=== PATIENT | female | born 1955 | race Caucasian/White ===

== ENCOUNTER 2017-04-05 16:42 | Inpatient (IN) | payer OTHER ==
[~2017-04-05] VITALS: Ht 160 cm; Wt 70.2 kg
[~2017-04-05 16:42] MED LIST: LORA10TA7
[2017-04-05 16:44] VITALS: BP 166/83; PULSE 80; RESP 18; TEMP 99.2; O2SAT 94
--- NOTE | 2017-04-05 16:51 | PD ---
Physical Exam Time Seen by Provider: 16:47 Narrative 62yo F c/o really bad COLLAZO for 1-2 weeks. Different sensation of feeling in L had compared to R. Left lower back and leg numbness and weakness. + hallucinations such as flashers, lights and viusals. + slurred speech for one day. Patient seen in triage. VS reviewed. Awaiting bed placement. Data Data Last Documented VS Vital Signs Date Time Temp Pulse Resp B/P Pulse Ox O2 Delivery O2 Flow Rate FiO2 04/05/17 16:44 99.2 80 18 166/83 94 Room Air MDM Supervised Visit with EVELINE: Kaylyn Laureano Apr 05, 2017 16:51
--- NOTE | 2017-04-05 17:40 | PD ---
HPI Chief Complaint: Headache Time Seen by Provider: 17:39 Travel History International Travel<30 days: No Contact w/Intl Traveler<30days: No Traveled to known affect area: No History of Present Illness HPI 62-year-old female came to the emergency room brought by her with history of headache, neck pain, left sided upper extremity tingling and numbness and left lower extremity pain. Patient started having headache and earache 10 days ago and went to the urgent care. She was started on doxycycline and Medrol Dosepak. She has history of lupus. Patient says that she continues taking the medication but symptoms did not improve. She went back to urgent care about 3 days ago at this time was started on ciprofloxacin as well as prednisone. She is was getting visual hallucinations last week and the numbness started 2 days ago. She says she has been unable to feel the temperature especially the cold temperature with her left hand. She also feels numb over her left side of the lower back and left leg. There is radiating pain down her leg. Her headache continues. She has been getting fever and chills but she did not measure temperature. She has neck pain mostly on the right side of her neck. Given all these various symptoms she decided come to the emergency room. No history of sick contacts. Vital signs in triage were within acceptable limits. Patient has a malar rash which she says she has had it since she was 11 years old and comes and goes. It's related to her lupus. Currently it is very prominent. PFSH Past Medical History Narrative Medical List of her past medical, surgical, social and family history as reviewed from the nursing note. Hypertension: Yes Immune Disorder: Yes (LUPUS) Family History Family Hypercholesterolemia: Yes Social History Alcohol Use: No Tobacco Use: No Allergies-Medications (Allergen,Severity, Reaction): Coded Allergies: No Known Allergies (Verified , 08/20/06) Comments No known drug allergies. Reported Meds & Prescriptions Reported Meds & Active Scripts Active Reported Ultram (Tramadol HCl) 50 Mg Tab 50 Mg PO Q6H PRN Prednisone 50 Mg Tab 50 Mg PO DAILY Cipro Liq (Ciprofloxacin) 500 Mg/5 Ml Susp 500 Mg PO BID Narrative Medication List of home medications reviewed from the nursing note. Review of Systems Except as stated in HPI: all other systems reviewed are Neg Physical Exam Narrative GENERAL: Awake, alert, moderate distress SKIN: Focused skin assessment warm/dry. Mallor rash HEAD: Atraumatic. Normocephalic. EYES: Pupils equal and round. No scleral icterus. No injection or drainage. ENT: No nasal bleeding or discharge. Mucous membranes pink and moist. NECK: Trachea midline. No JVD. Pain on extension and flexion of her neck CARDIOVASCULAR: Regular rate and rhythm. No murmur appreciated. RESPIRATORY: No accessory muscle use. Clear to auscultation. Breath sounds equal bilaterally. GASTROINTESTINAL: Abdomen soft, non-tender, nondistended. Hepatic and splenic margins not palpable. MUSCULOSKELETAL: No obvious deformities. No clubbing. No cyanosis. No edema. NEUROLOGICAL: Awake and alert. No obvious cranial nerve deficits. Motor grossly within normal limits. Normal speech. PSYCHIATRIC: Appropriate mood and affect; insight and judgment normal. Data Data Last Documented VS Vital Signs Date Time Temp Pulse Resp B/P Pulse Ox O2 Delivery O2 Flow Rate FiO2 04/05/17 19:25 71 18 157/83 97 Room Air 04/05/17 18:02 98.2 Orders Complete Blood Count With Diff (04/05/17 17:57) Comprehensive Metabolic Panel (04/05/17 17:57) Lactic Acid Sepsis Protocol (04/05/17 17:57) Urinalysis - C+S If Indicated (04/05/17 17:57) Blood Culture (04/05/17 17:57) Chest, Single Ap (04/05/17 17:57) Blood Glucose (04/05/17 17:57) Ecg Monitoring (04/05/17 17:57) Iv Access Insert/Monitor (04/05/17 17:57) Oximetry (04/05/17 17:57) Oxygen Administration (04/05/17 17:57) Ct Brain W/O Iv Contrast(Rout) (04/05/17 17:57) Ct Cerv Spine W/O Contrast (04/05/17 ) Westergren Sedimentation Rate (04/05/17 17:57) Ceftriaxone Inj (Rocephin Inj) (04/05/17 18:00) Prothrombin Time / Inr (Pt) (04/05/17 18:04) Csf Culture And Gram Stain (04/05/17 19:02) Glucose, Csf (04/05/17 19:02) Total Protein, Csf (04/05/17 19:02) Admit Order (Ed Use Only) (04/05/17 19:42) Labs Laboratory Tests Test 04/05/17 04/05/17 04/05/17 04/05/17 17:50 18:05 18:42 18:50 White Blood Count 9.6 TH/MM3 Red Blood Count 4.29 MIL/MM3 Hemoglobin 14.8 GM/DL Hematocrit 43.4 % Mean Corpuscular Volume 101.0 FL Mean Corpuscular Hemoglobin 34.5 PG Mean Corpuscular Hemoglobin 34.1 % Concent Red Cell Distribution Width 14.3 % Platelet Count 238 TH/MM3 Mean Platelet Volume 7.3 FL Neutrophils (%) (Auto) 86.6 % Lymphocytes (%) (Auto) 8.5 % Monocytes (%) (Auto) 4.6 % Eosinophils (%) (Auto) 0.1 % Basophils (%) (Auto) 0.2 % Neutrophils # (Auto) 8.3 TH/MM3 Lymphocytes # (Auto) 0.8 TH/MM3 Monocytes # (Auto) 0.4 TH/MM3 Eosinophils # (Auto) 0.0 TH/MM3 Basophils # (Auto) 0.0 TH/MM3 CBC Comment DIFF FINAL Differential Comment Sodium Level 136 MEQ/L Potassium Level 4.2 MEQ/L Chloride Level 101 MEQ/L Carbon Dioxide Level 28.8 MEQ/L Anion Gap 6 MEQ/L Blood Urea Nitrogen 24 MG/DL Creatinine 1.71 MG/DL Estimat Glomerular Filtration 30 ML/MIN Rate Random Glucose 126 MG/DL Lactic Acid Level 1.1 mmol/L Calcium Level 8.6 MG/DL Total Bilirubin 0.3 MG/DL Aspartate Amino Transf 14 U/L (AST/SGOT) Alanine Aminotransferase 23 U/L (ALT/SGPT) Alkaline Phosphatase 101 U/L Total Protein 7.3 GM/DL Albumin 3.6 GM/DL Erythrocyte Sedimentation Rate 10 mm/hr Prothrombin Time 11.0 SEC Prothromb Time International 1.0 RATIO Ratio Urine Color LIGHT-YELLOW Urine Turbidity CLEAR Urine pH 5.5 Urine Specific [place] 1.010 Urine Protein NEG mg/dL Urine Glucose (UA) NEG mg/dL Urine Ketones NEG mg/dL Urine Occult Blood TRACE Urine Nitrite NEG Urine Bilirubin NEG Urine Urobilinogen LESS THAN 2.0 MG/DL Urine Leukocyte Esterase NEG Urine RBC LESS THAN 1 /hpf Urine WBC LESS THAN 1 /hpf Urine Squamous Epithelial <1 /hpf Cells Microscopic Urinalysis Comment CATH-CULT NOT IND MDM Medical Decision Making Medical Screen Exam Complete: Yes Emergency Medical Condition: Yes Medical Record Reviewed: Yes Differential Diagnosis Meningitis, encephalitis, cervical stenosis, viral infection, lupus flareup Narrative Course 6:50 PM chest x-ray was within normal limit. Awaiting for the CT scan of her head and C-spine report. Awaiting for blood test results to come back. CBC is back and her total white blood cell count result is within normal limit but there is some left shift. My suspicion is high for meningitis. I've given her a meningitic dose of Rocephin. Patient would require spinal tap if CT scan is within normal limits. 7:07 PM spinal tap by interventional radiology has been ordered. Case has been signed over to the oncoming ER physician. Patient will need to be admitted. CT C-spine shows considerable degenerative changes and moderate spinal stenosis. Procedures EKG Prior to Arrival: No Jacqueline Brewer MD Apr 05, 2017 17:40 Jacqueline Brewer MD Apr 05, 2017 17:40
[2017-04-05] MEDS ORDERED: cefTRIAXone INJ 2,000 MG in SODIUM CHLORIDE 0.9% INJ 100 ML IV ONE (18:00)
[2017-04-05 18:02] VITALS: BP 173/89; PULSE 69; RESP 18; TEMP 98.2; O2SAT 98
[2017-04-05] MEDS ORDERED: CIPR500S2 PO (18:02)
[2017-04-05] MEDS ORDERED: ULTR50TA5 PO (18:02)
[2017-04-05] MEDS ORDERED: PRED50 PO (18:02)
[2017-04-05 18:04] VITALS: RESP 18; O2SAT 99
--- NOTE | 2017-04-05 18:25 | RADRPT ---
EXAM DATE/TIME: 04/05/2017 17:56 [facility] COMPARISON: No previous studies available for comparison. INDICATIONS : Syncope. Headaches for the past two weeks. Dizziness also. MEDICAL HISTORY : Hypertension. Lupus. SURGICAL HISTORY : None. ENCOUNTER: Initial ACUITY: 2 weeks PAIN SCORE: 0/10 LOCATION: Bilateral chest FINDINGS: A single view of the chest demonstrates the lungs to be symmetrically aerated without evidence of mas s, infiltrate or effusion. The cardiomediastinal contours are unremarkable. Osseous structures are intact. CONCLUSION: No evidence of acute cardiopulmonary disease. Frederic Burgos MD on April 05, 2017 at 18:23 Board Certified Radiologist. This report was verified electronically.
[2017-04-05 18:41] LABS: AUTOMATED NEUTROPHIL # 8.3 TH/MM3 (1.8-7.7); BASOPHIL % 0.2 % (0.0-2.0); EOSINOPHIL % 0.1 % (0.0-4.0); HEMATOCRIT 43.4 % (35.0-46.0); HEMO FLAGS DIFF FINAL; LYMPH % 8.5 % (9.0-44.0); LYMPHOCYTE # 0.8 TH/MM3 (1.0-4.8); MEAN CORPUSCULAR HEMOGLOBIN 34.5 PG (27.0-34.0); MEAN CORPUSCULAR HGB CONC 34.1 % (32.0-36.0); MONO % 4.6 % (0.0-8.0); NEUT % 86.6 % (16.0-70.0); PLATELET COUNT 238 TH/MM3 (150-450); RED BLOOD COUNT 4.29 MIL/MM3 (4.00-5.30); RED CELL DISTRIBUTION WIDTH 14.3 % (11.6-17.2); WHITE BLOOD COUNT 9.6 TH/MM3 (4.0-11.0)
--- NOTE | 2017-04-05 18:47 | RADRPT ---
EXAM DATE/TIME: 04/05/2017 18:08 [facility] COMPARISON: No previous studies available for comparison. INDICATIONS : Cephalgia. RADIATION DOSE: 56.35 CTDIvol (mGy) MEDICAL HISTORY : Hypertension. Lupus. SURGICAL HISTORY : None. ENCOUNTER: Initial ACUITY: 2 weeks PAIN SCALE: 10/10 LOCATION: cranial TECHNIQUE: Multiple contiguous axial images were obtained of the head. Using automated exposure control and adj ustment of the mA and/or kV according to patient size, radiation dose was kept as low as reasonably a chievable to obtain optimal diagnostic quality images. DICOM format image data is available electro nically for review and comparison. FINDINGS: CEREBRUM: The ventricles are normal for age. No evidence of midline shift, mass lesion, hemorrhage or acute in farction. No extra-axial fluid collections are seen. POSTERIOR FOSSA: The cerebellum and brainstem are intact. The 4th ventricle is midline. The cerebellopontine angle i s unremarkable. EXTRACRANIAL: The visualized portion of the orbits is intact. SKULL: The calvaria is intact. No evidence of skull fracture. CONCLUSION: Negative noncontrast head CT. Frederic Burgos MD on April 05, 2017 at 18:45 Board Certified Radiologist. This report was verified electronically.
[2017-04-05 18:52] LABS: ANION GAP 6 MEQ/L (5-15); AST (GOT) 14 U/L (15-37); BICARBONATE 28.8 MEQ/L (21.0-32.0); BLOOD UREA NITROGEN 24 MG/DL (7-18); CHLORIDE 101 MEQ/L (98-107); GLOMERULAR FILTRATION RATE 30 ML/MIN (>89); POTASSIUM 4.2 MEQ/L (3.5-5.1); SODIUM (NA) 136 MEQ/L (136-145)
[2017-04-05 18:53] LABS: ALT (GPT) 23 U/L (10-53)
[2017-04-05 18:55] LABS: ALKALINE PHOSPHATASE 101 U/L (45-117); TOTAL BILIRUBIN ADULT 0.3 MG/DL (0.2-1.0)
--- NOTE | 2017-04-05 18:55 | RADRPT ---
EXAM DATE/TIME: 04/05/2017 18:09 [facility] COMPARISON: No previous studies available for comparison. INDICATIONS : Neck pain, numbness and tingling in upper extremities. RADIATION DOSE: 38.56 CTDIvol (mGy) MEDICAL HISTORY : Hypertension. Lupus. SURGICAL HISTORY : None. ENCOUNTER: Initial ACUITY: 2 weeks PAIN SCALE: 7/10 LOCATION: neck TECHNIQUE: Volumetric scanning of the cervical spine was performed. Multiplanar reconstructions in the sagittal, coronal and oblique axial planes were performed. Using automated exposure control and adjustment o f the mA and/or kV according to patient size, radiation dose was kept as low as reasonably achievable to obtain optimal diagnostic quality images. DICOM format image data is available electronically f or review and comparison. FINDINGS: VERTEBRAE: Normal vertebral body height. ALIGNMENT: No evidence of subluxation. C2-C3: Menisci within normal limits. Mild bilateral uncovertebral and facet osteoarthritis. No evidence of f oraminal or spinal stenosis. C3-C4: The disc has slight loss of height. There is a small, broad posterior disc protrusion and mild to mod erate bilateral uncovertebral and facet osteoarthritis. There is mild spinal stenosis without evidenc e of cord compression and mild to moderate bilateral foraminal stenosis. C4-C5: The disc has mild to moderate loss of height. Chronic appearing sclerosis and cystic change seen of t he vertebral body endplates. There is a small to moderate broad/diffuse disc osteophyte complex and m oderate bilateral uncovertebral and facet osteoarthritis. There is mild spinal stenosis without evide nce of cord compression and moderate bilateral foraminal stenosis. C5-C6: The disc has moderate loss of height. There is a moderate, broad/diffuse disc osteophyte complex and moderate bilateral uncovertebral and facet osteoarthritis. There is moderate spinal stenosis with lulu rt segment cord compression, slightly eccentric towards the left. There is mild to moderate right and moderate to severe left foraminal stenosis. C6-C7: The disc has moderate loss of height. A small, broad/diffuse disc osteophyte complex is present and t here is [id number] bilateral uncovertebral and facet osteoarthritis. There is mild spinal steno sis and mild to moderate right, mild left foraminal stenosis. C7-T1: Within normal limits. CONCLUSION: 1. Multilevel cervical spine degenerative changes as detailed above. 2. Moderate spinal stenosis and high-grade left foraminal stenosis at C5/C6. 3. Generally mild spinal stenosis and mild to moderate degrees of foraminal encroachment elsewhere. 4. No fracture or subluxation demonstrated. Frederic Burgos MD on April 05, 2017 at 18:50 Board Certified Radiologist. This report was verified electronically.
[2017-04-05 19:03] LABS: BLOOD, URINE TRACE (NEG); GLUCOSE,URINE NEG (NEG); KETONE, URINE NEG (NEG); NITRITE,URINE NEG (NEG); PH, URINE 5.5 (5.0-8.5); SQUAMOUS EPITHELIAL CELL URINE <1 /hpf (0-5); URINE COLOR LIGHT-YELLOW (YELLW/STRAW)
[2017-04-05 19:04] LABS: COMMENT (UR) CATH-CULT NOT IND; CULTURE IF INDICATED CATH CULTURE NOT IND
[2017-04-05 19:25] VITALS: BP 157/83; PULSE 71; RESP 18; O2SAT 97
--- NOTE | 2017-04-05 19:34 | PD ---
Data Data Last Documented VS Vital Signs Date Time Temp Pulse Resp B/P Pulse Ox O2 Delivery O2 Flow Rate FiO2 04/05/17 19:25 71 18 157/83 97 Room Air 04/05/17 18:02 98.2 Orders Complete Blood Count With Diff (04/05/17 17:57) Comprehensive Metabolic Panel (04/05/17 17:57) Lactic Acid Sepsis Protocol (04/05/17 17:57) Urinalysis - C+S If Indicated (04/05/17 17:57) Blood Culture (04/05/17 17:57) Chest, Single Ap (04/05/17 17:57) Blood Glucose (04/05/17 17:57) Ecg Monitoring (04/05/17 17:57) Iv Access Insert/Monitor (04/05/17 17:57) Oximetry (04/05/17 17:57) Oxygen Administration (04/05/17 17:57) Ct Brain W/O Iv Contrast(Rout) (04/05/17 17:57) Ct Cerv Spine W/O Contrast (04/05/17 ) Westergren Sedimentation Rate (04/05/17 17:57) Ceftriaxone Inj (Rocephin Inj) (04/05/17 18:00) Prothrombin Time / Inr (Pt) (04/05/17 18:04) Lumbar Puncture (04/05/17 ) Vital Signs (Adult) .On admission (04/05/17 19:02) Notify Radiology (04/05/17 19:02) Csf Culture And Gram Stain (04/05/17 19:02) Csf Cell Count + Differential (04/05/17 19:02) Glucose, Csf (04/05/17 19:02) Total Protein, Csf (04/05/17 19:02) Admit Order (Ed Use Only) (04/05/17 19:42) Labs Laboratory Tests Test 04/05/17 04/05/17 04/05/17 04/05/17 17:50 18:05 18:42 18:50 White Blood Count 9.6 TH/MM3 Red Blood Count 4.29 MIL/MM3 Hemoglobin 14.8 GM/DL Hematocrit 43.4 % Mean Corpuscular Volume 101.0 FL Mean Corpuscular Hemoglobin 34.5 PG Mean Corpuscular Hemoglobin 34.1 % Concent Red Cell Distribution Width 14.3 % Platelet Count 238 TH/MM3 Mean Platelet Volume 7.3 FL Neutrophils (%) (Auto) 86.6 % Lymphocytes (%) (Auto) 8.5 % Monocytes (%) (Auto) 4.6 % Eosinophils (%) (Auto) 0.1 % Basophils (%) (Auto) 0.2 % Neutrophils # (Auto) 8.3 TH/MM3 Lymphocytes # (Auto) 0.8 TH/MM3 Monocytes # (Auto) 0.4 TH/MM3 Eosinophils # (Auto) 0.0 TH/MM3 Basophils # (Auto) 0.0 TH/MM3 CBC Comment DIFF FINAL Differential Comment Sodium Level 136 MEQ/L Potassium Level 4.2 MEQ/L Chloride Level 101 MEQ/L Carbon Dioxide Level 28.8 MEQ/L Anion Gap 6 MEQ/L Blood Urea Nitrogen 24 MG/DL Creatinine 1.71 MG/DL Estimat Glomerular Filtration 30 ML/MIN Rate Random Glucose 126 MG/DL Lactic Acid Level 1.1 mmol/L Calcium Level 8.6 MG/DL Total Bilirubin 0.3 MG/DL Aspartate Amino Transf 14 U/L (AST/SGOT) Alanine Aminotransferase 23 U/L (ALT/SGPT) Alkaline Phosphatase 101 U/L Total Protein 7.3 GM/DL Albumin 3.6 GM/DL Erythrocyte Sedimentation Rate 10 mm/hr Prothrombin Time 11.0 SEC Prothromb Time International 1.0 RATIO Ratio Urine Color LIGHT-YELLOW Urine Turbidity CLEAR Urine pH 5.5 Urine Specific [place] 1.010 Urine Protein NEG mg/dL Urine Glucose (UA) NEG mg/dL Urine Ketones NEG mg/dL Urine Occult Blood TRACE Urine Nitrite NEG Urine Bilirubin NEG Urine Urobilinogen LESS THAN 2.0 MG/DL Urine Leukocyte Esterase NEG Urine RBC LESS THAN 1 /hpf Urine WBC LESS THAN 1 /hpf Urine Squamous Epithelial <1 /hpf Cells Microscopic Urinalysis Comment CATH-CULT NOT IND MDM Medical Record Reviewed: Yes Supervised Visit with EVELINE: No Interpretation(s) Last Impressions Head CT 04/05/171756 Signed Impressions: Service Date/Time: Wednesday, April 05, 2017 18:08 - CONCLUSION: Negative noncontrast head CT. Frederic Burgos MD Chest X-Ray 04/05/171756 Signed Impressions: Service Date/Time: Wednesday, April 05, 2017 17:56 - CONCLUSION: No evidence of acute cardiopulmonary disease. Frederic Burgos MD Cervical Spine CT 04/05/17 0000 Signed Impressions: Service Date/Time: Wednesday, April 05, 2017 18:09 - CONCLUSION: 1. Multilevel cervical spine degenerative changes as detailed above. 2. Moderate spinal stenosis and high-grade left foraminal stenosis at C5/C6. 3. Generally mild spinal stenosis and mild to moderate degrees of foraminal encroachment elsewhere. 4. No fracture or subluxation demonstrated. Frederic Burgos MD Narrative Course During the course of the patients emergency department visit, the patients history, examination, and differential diagnosis were reviewed with the patient. The patient had IV access obtained and blood work sent for analysis. The patient was initially seen by Dr. Brewer. Please see her complete history and physical. The patient reportedly presented with headache over the last 10 days associated with intermittent hallucinations, change in sensation in her left arm compared to the right. Workup ensued. The patient had previously been placed on 2 different courses of antibiotic and steroids due to her history of lupus. In the differential was meningitis that is been partially treated by the multiple courses of antibiotic. Dr. Brewer ordered a meningitic dose of Rocephin. She also ordered an interventional radiology for fluoroscopic guided lumbar puncture. She requested that the patient be admitted to the hospital. A call has been placed out to the [facility] hospitalist service for admission as the patient does not have a primary care physician currently. The patient was initially provided Rocephin 2 g IV. The patients laboratory studies were reviewed and remarkable for a white count of 9.6, hemoglobin 14.8, platelets 238 with neutrophils 86.6, monocytes 8.5, sedimentation rate is 10, CMP is remarkable for a BUN of 24, creatinine 1.71, glucose 126 on AST 14, lactic acid 1.1, PT 11, INR 1.0, urinalysis shows trace occult blood, otherwise unremarkable. Radiology studies were reviewed and remarkable for a CT scan of the brain that shows a negative noncontrast head CT. Chest x-ray shows no evidence of acute cardiopulmonary disease. CT scan of the C-spine shows multilevel cervical spine degenerative changes, moderate spinal stenosis and hydrated left foraminal stenosis at C5-C6, generally mild spinal stenosis and mild to moderate degree of foraminal encroachment elsewhere, no fracture or subluxation demonstrated. The patients results were discussed with the patient, including the plan of care. I explained that further testing and/ or monitoring is indicated based on the patients history, examination, and/ or laboratory findings. Therefore, I recommended admission for additional evaluation. The patient expressed understanding and was agreeable with this plan. The patient was admitted to the hospital in stable condition and [facility] Physician Communication Physician Communication I spoke to Dr. Stephens regarding this patient's case. He did [facility] Diagnosis Primary Impression: Altered mental status Qualified Code: R41.82 - Altered mental status, unspecified altered mental status type Additional Impressions: Headache Qualified Code: R51 - Acute intractable headache, unspecified headache type Neck pain Degenerative arthritis of cervical spine Qualified Code: M47.22 - Osteoarthritis of spine with radiculopathy, cervical region Degenerative cervical spinal stenosis Admitting Information Admitting Physician Requests: Admit Edith Chairez MD Apr 05, 2017 19:34
--- NOTE | 2017-04-05 20:50 | HHI.HP ---
HPI Service [facility] Hospitalists Primary Care Physician Noel Leblanc MD Admission Diagnosis Intractable headache with AMS and neurological symptoms Chief Complaint: intractable headache with neurologic signs Travel History International Travel<30 Days: No Contact w/Intl Traveler <30 Da: No Traveled to Known Affected Are: No History of Present Illness 62-year-old female came to the emergency room brought by her with history of headache, neck pain, left sided upper extremity tingling and numbness and left lower extremity pain. Patient started having headache and earache 10 days ago and went to the urgent care. She was started on doxycycline and Medrol Dosepak. She has history of lupus. Patient says that she continues taking the medication but symptoms did not improve. She went back to urgent care about 3 days ago at this time was started on ciprofloxacin as well as prednisone. She is was getting visual hallucinations last week and the numbness started 2 days ago. She says she has been unable to feel the temperature especially the cold temperature with her left hand. She also feels numb over her left side of the lower back and left leg. There is radiating pain down her leg. Her headache continues. She has been getting fever and chills but she did not measure temperature. She has neck pain mostly on the right side of her neck. Given all these various symptoms she decided come to the emergency room. No history of sick contacts. Vital signs in triage were within acceptable limits. Patient has a malar rash which she says she has had it since she was 11 years old and comes and goes. It's related to her lupus. Currently it is very prominent. Concern is for possible menigitis and lupus cerebritis for spinal tap and will get neurologic evaluation. Review of Systems ROS Limitations: Altered Mental Status Constitutional: COMPLAINS OF: Dizziness Eyes: COMPLAINS OF: Blurred vision Neurologic: COMPLAINS OF: Headache, Paresthesias Past Family Social History Past Medical History hypertension,lupus Past Surgical History none Reported Medications prednisone 50,cipro,ultram Allergies: Coded Allergies: No Known Allergies (Verified , 08/20/06) Family History cholesterol Social History NS,ND Physical Exam Vital Signs Vital Signs Date Time Temp Pulse Resp B/P Pulse Ox O2 Delivery O2 Flow Rate FiO2 04/05/17 19:25 71 18 157/83 97 Room Air 04/05/17 18:04 98 Room Air 04/05/17 18:04 18 99 Room Air 04/05/17 18:02 98.2 69 18 173/89 98 Room Air 04/05/17 17:52 69 18 96 Room Air 04/05/17 16:44 99.2 80 18 166/83 94 Room Air Physical Exam GENERAL: This is a well-nourished, well-developed patient, in no apparent distress. SKIN: No rashes, ecchymoses or lesions. Cool and dry. HEAD: Atraumatic. Normocephalic. No temporal or scalp tenderness. EYES: Pupils equal round and reactive. Extraocular motions intact. No scleral icterus. No injection or drainage. ENT: Nose without bleeding, purulent drainage or septal hematoma. Throat without erythema, tonsillar hypertrophy or exudate. Uvula midline. Airway patent. NECK: Trachea midline. No JVD or lymphadenopathy. Supple, nontender, no meningeal signs. CARDIOVASCULAR: Regular rate and rhythm without murmurs, gallops, or rubs. RESPIRATORY: Clear to auscultation. Breath sounds equal bilaterally. No wheezes , rales, or rhonchi. GASTROINTESTINAL: Abdomen soft, non-tender, nondistended. No hepato-splenomegaly , or palpable masses. No guarding. MUSCULOSKELETAL: Extremities without clubbing, cyanosis, or edema. No joint tenderness, effusion, or edema noted. No calf tenderness. Negative Homans sign bilaterally. NEUROLOGICAL: Awake and alert. Cranial nerves II through XII intact. Motor and sensory grossly within normal limits. Five out of 5 muscle strength in all muscle groups. Normal speech. Laboratory Laboratory Tests Test 04/05/17 04/05/17 04/05/17 04/05/17 17:50 18:05 18:42 18:50 White Blood Count 9.6 Red Blood Count 4.29 Hemoglobin 14.8 Hematocrit 43.4 Mean Corpuscular Volume 101.0 Mean Corpuscular Hemoglobin 34.5 Mean Corpuscular Hemoglobin 34.1 Concent Red Cell Distribution Width 14.3 Platelet Count 238 Mean Platelet Volume 7.3 Neutrophils (%) (Auto) 86.6 Lymphocytes (%) (Auto) 8.5 Monocytes (%) (Auto) 4.6 Eosinophils (%) (Auto) 0.1 Basophils (%) (Auto) 0.2 Neutrophils # (Auto) 8.3 Lymphocytes # (Auto) 0.8 Monocytes # (Auto) 0.4 Eosinophils # (Auto) 0.0 Basophils # (Auto) 0.0 CBC Comment DIFF FINAL Differential Comment Sodium Level 136 Potassium Level 4.2 Chloride Level 101 Carbon Dioxide Level 28.8 Anion Gap 6 Blood Urea Nitrogen 24 Creatinine 1.71 Estimat Glomerular Filtration 30 Rate Random Glucose 126 Lactic Acid Level 1.1 Calcium Level 8.6 Total Bilirubin 0.3 Aspartate Amino Transf 14 (AST/SGOT) Alanine Aminotransferase 23 (ALT/SGPT) Alkaline Phosphatase 101 Total Protein 7.3 Albumin 3.6 Erythrocyte Sedimentation Rate 10 Prothrombin Time 11.0 Prothromb Time International 1.0 Ratio Urine Color LIGHT-YELLOW Urine Turbidity CLEAR Urine pH 5.5 Urine Specific Linn 1.010 Urine Protein NEG Urine Glucose (UA) NEG Urine Ketones NEG Urine Occult Blood TRACE Urine Nitrite NEG Urine Bilirubin NEG Urine Urobilinogen LESS THAN 2.0 Urine Leukocyte Esterase NEG Urine RBC LESS THAN 1 Urine WBC LESS THAN 1 Urine Squamous Epithelial <1 Cells Microscopic Urinalysis Comment CATH-CULT NOT IND Date/Time Procedure Status Source Growth 04/05/17 18:05 Aerobic Blood Culture Received Blood Peripheral Pending 04/05/17 18:05 Anaerobic Blood Culture Received Blood Peripheral Pending Result Diagram: 04/05/17174904/05/171749 Imaging Last [address] 04/05/171756 Signed Impressions: Service Date/Time: Wednesday, April 05, 2017 18:08 - CONCLUSION: Negative noncontrast head CT. Frederic Burgos MD Chest X-Ray 04/05/171756 Signed Impressions: Service Date/Time: Wednesday, April 05, 2017 17:56 - CONCLUSION: No evidence of acute cardiopulmonary disease. Frederic Burgos MD Cervical Spine CT 04/05/17 0000 Signed Impressions: Service Date/Time: Wednesday, April 05, 2017 18:09 - CONCLUSION: 1. Multilevel cervical spine degenerative changes as detailed above. 2. Moderate spinal stenosis and high-grade left foraminal stenosis at C5/C6. 3. Generally mild spinal stenosis and mild to moderate degrees of foraminal encroachment elsewhere. 4. No fracture or subluxation demonstrated. Frederic Burgos MD Assessment and Plan Problem List: (1) Intractable headache Status: Acute Plan: lasting over a week will need to r/o lupus cerebritis vs meningitis started on high dose rocephin in er for LP and will get neuro evaluation (2) Neck pain Status: Chronic Plan: CT shows djd c spine (3) Altered mental status Status: Acute Plan: related to headache (4) Degenerative cervical spinal stenosis Status: Chronic Plan: based on ct neck Assessment and Plan further plan as case develops Code Status full Discussed Condition With patient Physician Certification 2 Midnight Certification Type: Admission for Inpatient Services Order for Inpatient Services The services are ordered in accordance with Medicare regulations or non- Medicare payer requirements, as applicable. In the case of services not specified as inpatient-only, they are appropriately provided as inpatient services in accordance with the 2-midnight benchmark. Estimated LOS (days): 3 3 days is the estimated time the patient will need to remain in the hospital, assuming treatment plan goals are met and no additional complications. Post-Hospital Plan: Not yet determined Problem Qualifiers (1) Altered mental status: Qualified Code: R41.82 - Altered mental status, unspecified altered mental status type Asael Stephens MD Apr 05, 2017 20:50
[2017-04-05] MEDS ORDERED: LACTULOSE SYRUP 20 GM/30 ML CUP PO PRN (21:00)
[2017-04-05] MEDS ORDERED: BISACODYL 10 MG SUPP RECTAL PRN (21:00)
[2017-04-05] MEDS ORDERED: MAGNESIUM HYDROXIDE SUSP 30 ML CUP PO PRN (21:00)
[2017-04-05] MEDS ORDERED: SODIUM CHLORIDE 0.9% FLUSH 10 ML FLUSH IV FLUSH PRN (21:00)
[2017-04-05] MEDS: DOCUSATE SODIUM 50 MG/SENNA 8.6 MG TAB PO SCH (21:00)
[2017-04-05] MEDS ORDERED: SENNOSIDES 8.6 MG TAB PO PRN (21:00)
[2017-04-05] MEDS ORDERED: ONDANSETRON HCL 4 MG/2 ML VIAL IVP PRN (21:00)
[2017-04-05] MEDS ORDERED: NALOXONE HCL 0.4 MG/ML AMP IV PRN (21:00)
[2017-04-05 21:43] VITALS: BP 167/83; PULSE 73; RESP 18; TEMP 98.6; O2SAT 96
[2017-04-05] MEDS: SODIUM CHLOR 0.45% 1000 ML INJ 1,000 ML IV SCH (22:03)
[2017-04-05] MEDS: SODIUM CHLORIDE 0.9% FLUSH 10 ML FLUSH IV FLUSH SCH (22:03)
[2017-04-05] MEDS: HYDROmorphone HCL PF 1 MG/ML VIAL IV PUSH PRN (22:17)
[2017-04-06] VITALS: BP 167/84; PULSE 77; RESP 16; TEMP 97.7; O2SAT 95
[2017-04-06 04:00] VITALS: BP 140/63; PULSE 58; RESP 18; TEMP 98; O2SAT 93
[2017-04-06] MEDS: HYDROmorphone HCL PF 1 MG/ML VIAL IV PUSH PRN ×5 (04:36→22:27)
--- NOTE | 2017-04-06 07:51 | PD.CONS ---
History of Present Illness Service Neurology Consult Requested By medical Reason for Consult headache Primary Care Physician Noel Leblanc MD History of Present Illness 62-year-old female came to the emergency room brought by her with history of headache, neck pain, left sided upper extremity tingling and numbness and left lower extremity pain. Patient started having headache and earache 10 days ago and went to the urgent care. She was started on doxycycline and Medrol Dosepak. BP there was 188/100. ct brain normal. no fever. no leukocytosis. esr 10. not on any antiplatelet. hx of lupus but states she has been in remission since 2005 and not followed by anyone for it. hx of migraines that were also in remission but she thinks this manifesting as well. has n/v, mild phonophobia. no temporal pain, no fever or jaw claudication. c/o of neck pain- chronic. tightness in rt shoulder. slept well. sitting at edge of bed, fully alert. no vision loss, no current sensory changes. Review of Systems ROS Limitations: as above and admit hp Past Family Social History Past Medical History hypertension,lupus Past Surgical History none Reported Medications prednisone 50,cipro,ultram Allergies: Coded Allergies: No Known Allergies (Verified , 08/20/06) Family History cholesterol Social History denies tob/etoh/illicit drug use Review of Systems All other ROS: ROS reviewed as documented in chart Past Family Social History Allergies: Coded Allergies: No Known Allergies (Verified , 08/20/06) Active Ordered Medications Current Medications Medications (Trade) Dose Ordered Sig/Briana Route Start Time Stop Time Status Last Admin (08/24 NS 1000 ml Inj) 1,000 ml @ 75 mls/hr [id number] IV 04/05/17 20:51 04/05/17 22:03 (NS Flush) 2 ml UNSCH PRN IV FLUSH 04/05/17 21:00 (NS Flush) 2 ml BID IV FLUSH 04/05/17 21:00 04/05/17 22:03 (Zofran Inj) 4 mg Q6H PRN IVP 04/05/17 21:00 (Narcan Inj) 0.4 mg UNSCH PRN IV 04/05/17 21:00 (Dominique-Colace) 1 tab BID PO 04/05/17 21:00 (Milk Of Magnesia Liq) 30 ml Q12H PRN PO 04/05/17 21:00 (Senokot) 17.2 mg Q12H PRN PO 04/05/17 21:00 (Dulcolax Supp) 10 mg DAILY PRN RECTAL 04/05/17 21:00 (Lactulose Liq) 30 ml DAILY PRN PO 04/05/17 21:00 (Dilaudid Pf Inj) 0.5 mg Q4H PRN IV PUSH 04/05/17 22:00 04/06/17 04:36 Exam I&O / VS 04/05/17 04/05/17 04/06/17 15:00 23:00 07:00 Intake Total 320 ml 0 ml Balance 320 ml 0 ml Intake Oral 320 ml 0 ml # Voids 1 2 # Bowel Movements 0 0 Vital Signs Date Time Temp Pulse Resp B/P Pulse Ox O2 Delivery O2 Flow Rate FiO2 04/06/17 04:00 98.0 58 18 140/63 93 04/06/17 00:00 Room Air 04/06/17 00:00 97.7 77 16 167/84 95 04/05/17 21:43 98.6 73 18 167/83 96 04/05/17 19:25 71 18 157/83 97 Room Air 04/05/17 18:04 98 Room Air 04/05/17 18:04 18 99 Room Air 04/05/17 18:02 98.2 69 18 173/89 98 Room Air 04/05/17 17:52 69 18 96 Room Air 04/05/17 16:44 99.2 80 18 166/83 94 Room Air General: Alert and Oriented, No acute distress Eye: EOMI Respiratory: Non-labored respirations Neurologic: Alert, Oriented, Normal sensory, Normal motor, CN II-XII intact, Gag reflex normal, Normal DTR's Psychiatric: Cooperative, Appropriate mood & affect, Normal judgement, Non- suicidal Exam Comments looks well, up, ox 3, +tightness in rt neck, probable spasm, no temporal tenderness, eomi, vff, ou 3-2mm, face sym, mild facial hypomimia, younger to gravity , no drift, msr sym 1-2+, matt to stand and take a couple of steps but felt unsteady Review/Management Diagnosis/Plan: (1) Hypertensive encephalopathy Plan: doubt protection analyst infection or acute vasculitis with normal esr, absence of fever and leukocytosis also, she looks to good to have this at present i'm more concerned about her severe HTN and possible tia also, suspect migraine and spasm component recs mri/mra brain eeg labs p.t. pain control hold lp; consider if change in her exam/symptoms or imaging suggestive bp control (2) Migraine (3) TIA (transient ischemic attack) (4) Neck pain (5) Degenerative cervical spinal stenosis Problem Qualifiers (1) Migraine: (2) TIA (transient ischemic attack): Qualified Code: G45.9 - Transient cerebral ischemia, unspecified type Johnathan Garcia MD Apr 06, 2017 07:51
[2017-04-06 08:00] VITALS: BP 180/84; PULSE 66; RESP 18; TEMP 98.4; O2SAT 96
[2017-04-06 08:23] LABS: AUTOMATED NEUTROPHIL # 6.2 TH/MM3 (1.8-7.7); BASOPHIL % 0.4 % (0.0-2.0); EOSINOPHIL # 0.1 TH/MM3 (0-0.4); EOSINOPHIL % 0.9 % (0.0-4.0); HEMATOCRIT 44.1 % (35.0-46.0); HEMO FLAGS DIFF FINAL; LYMPH % 33.2 % (9.0-44.0); LYMPHOCYTE # 3.6 TH/MM3 (1.0-4.8); MEAN CELL VOLUME 100.8 FL (80.0-100.0); MEAN CORPUSCULAR HEMOGLOBIN 34.5 PG (27.0-34.0); MEAN CORPUSCULAR HGB CONC 34.3 % (32.0-36.0); MONO % 8.7 % (0.0-8.0); NEUT % 56.8 % (16.0-70.0); PLATELET COUNT 224 TH/MM3 (150-450); RED BLOOD COUNT 4.37 MIL/MM3 (4.00-5.30); RED CELL DISTRIBUTION WIDTH 14.2 % (11.6-17.2)
[2017-04-06 08:45] LABS: ALT (GPT) 21 U/L (10-53); ANION GAP 8 MEQ/L (5-15); AST (GOT) 13 U/L (15-37); BICARBONATE 26.9 MEQ/L (21.0-32.0); BLOOD UREA NITROGEN 22 MG/DL (7-18); CHLORIDE 103 MEQ/L (98-107); GLOMERULAR FILTRATION RATE 36 ML/MIN (>89); POTASSIUM 3.8 MEQ/L (3.5-5.1); SODIUM (NA) 138 MEQ/L (136-145)
[2017-04-06 08:46] LABS: ALKALINE PHOSPHATASE 97 U/L (45-117); TOTAL BILIRUBIN ADULT 0.5 MG/DL (0.2-1.0)
[2017-04-06] MEDS: DOCUSATE SODIUM 50 MG/SENNA 8.6 MG TAB PO SCH ×2 (09:00→20:26)
[2017-04-06] MEDS: SODIUM CHLORIDE 0.9% FLUSH 10 ML FLUSH IV FLUSH SCH ×2 (09:43→20:25)
[2017-04-06 09:57] LABS: HDL CHOLESTEROL 53.3 MG/DL (40.0-60.0); LDL CHOLESTEROL 141 MG/DL (0-99)
[2017-04-06 10:48] LABS: HEMOGLOBIN A1b 0.9 %; HEMOGLOBIN Ao 86.5 %; HEMOGLOBIN F 0.9 %; HEMOGLOBIN LA1C 1.8 %; HEMOGLOBIN P3 3.4 %
[2017-04-06 12:00] VITALS: BP 139/71; PULSE 66; RESP 18; TEMP 97.9; O2SAT 96
--- NOTE | 2017-04-06 14:40 | RADRPT ---
EXAM DATE/TIME: 04/06/2017 11:37 [facility] COMPARISON: No previous studies available for comparison. INDICATIONS : Tingling in upper extremities. MEDICAL HISTORY : Lupus. Hypertension. SURGICAL HISTORY : None. ENCOUNTER: Subsequent ACUITY: 2 day PAIN SCORE: 0/10 LOCATION: Neck. TECHNIQUE: Multiplanar, multisequence MRI examination of the cervical spine was performed. FINDINGS: The exam demonstrates cervical spondylosis from C3 through C7. Disc space narrowing as well as anter ior and posterior osteophytic ridging is noted at these levels. Mild spinal stenosis is noted at C5- 6. Moderate to severe left neural foraminal narrowing is noted at C5-6 also. Mild to moderate narro wing is noted at C4-5 and C6-7. Diffuse asymmetric disc osteophyte complex to the left is noted at C 3-4. C2-3: There is no significant spinal stenosis or neural foraminal narrowing. C3-4: There is a mild diffuse asymmetric disc osteophyte complex to the left which results in mild flatteni ng of the anterior thecal sac but no spinal stenosis. Mild to moderate bilateral neural foraminal na rrowing is noted at this level. C4-5: There is a mild diffuse disc osteophyte complex resulting in mild to moderate bilateral neural forami nal narrowing but no spinal stenosis. C5-6: There is mild spinal stenosis and moderate to severe left neural foraminal narrowing secondary to a c ombination of diffuse disc osteophyte complex which is asymmetric to the left as well as facet joint hypertrophy bilaterally. Mild right neural foraminal narrowing is noted at this level. C6-7: There is mild diffuse disc osteophyte complex resulting in mild to moderate bilateral neural foramina l narrowing but no spinal stenosis. No focal disc herniation is noted. C7-T1: There is no significant spinal stenosis or neural foraminal narrowing. CONCLUSION: 1. Mild spinal stenosis and moderate ot severe left neural foraminal narrowing at C5-6. 2. Mild to moderate bilateral neural foraminal narrowing at C3-4, C4-5 and C6-7. 3. Cervical spondylosis from C3 through C7. George Traylor MD on April 06, 2017 at 13:29 Board Certified Radiologist. This report was verified electronically.
--- NOTE | 2017-04-06 15:04 | RADRPT ---
EXAM DATE/TIME: 04/06/2017 10:42 [facility] COMPARISON: No previous studies available for comparison. INDICATIONS : Cerebrovascular accident. MEDICAL HISTORY : Hypertension. Migraines. Paresthesia. LUPUS. SURGICAL HISTORY : Tubal ligation. ENCOUNTER: Initial ACUITY: 1 day PAIN SCORE: 10/10 LOCATION: Bilateral neck PEAK SYSTOLIC VELOCITIES (cm/sec): ICA/CCA RATIO: Right: 1.0 Left: 0.9 ICA: Right: 84 Left: 77 CCA: Right: 83 Left: 81 ECA: Right: 81 Left: 62 VERTEBRAL: Right: 57 antegrade Left: 54 antegrade Elevated flow velocities and ICA/CCA ratios have been found to correlate with increased degrees of vessel stenosis, calculated as percentage of diameter relative to a normal segment of distal ICA/CCA FINDINGS: RIGHT CAROTID: No significant stenosis is visualized. The waveforms are within normal limits. LEFT CAROTID: No significant stenosis is visualized. The waveforms are within normal limits. VERTEBRAL ARTERIES: Antegrade flow is seen in both vertebral arteries. MISCELLANEOUS: None. CONCLUSION: Normal examination. Frederic Irving MD on April 06, 2017 at 14:59 Board Certified Radiologist. This report was verified electronically.
--- NOTE | 2017-04-06 15:30 | RADRPT ---
EXAM DATE/TIME: 04/06/2017 11:37 [facility] COMPARISON: CT BRAIN W/O CONTRAST, April 05, 2017, 18:08. INDICATIONS : Cephalgia. Tingling in upper extremities. MEDICAL HISTORY : Lupus. Hypertension. SURGICAL HISTORY : None. ENCOUNTER: Subsequent ACUITY: 2 day PAIN SCORE: 0/10 LOCATION: head. TECHNIQUE: Multiplanar, multisequence MRI of the brain was performed without contrast. FINDINGS: The diffusion restriction images demonstrate scattered areas of abnormal diffusion signal involving b oth cerebellar hemispheres, the occipital cortex on the right and the medial aspect of the right temp oral lobe. There are scattered areas of corresponding T2 signal within these. There is no evidence of hemorrhage within this. Findings are concerning for acute/subacute cortical infarct. The areas invol marlene at least 2 different vascular territories. Further workup to exclude embolic etiology would be wa rranted. The ventricles are normal in size and configuration. No findings to indicate hemorrhage are seen. No abnormal extra-axial fluid collections are identified. Sagittal T1-weighted images demonstrate normal formation of the corpus callosum and midline structure s. The cerebellar tonsils are in their appropriate location. The visualized portion of sinus and orbit are intact. CONCLUSION: 1. Patchy areas of abnormal diffusion signal in both cerebellar hemispheres, the cerebellar vermis, t he right occipital cortex in the medial aspect of the right temporal cortex. Findings are concerning for subacute cortical infarct. Please see above discussion. Meliton Almazan MD on April 06, 2017 at 15:22 Board Certified Radiologist. This report was verified electronically.
[2017-04-06 16:00] VITALS: BP 126/65; PULSE 73; RESP 18; TEMP 98.1; O2SAT 94
--- NOTE | 2017-04-06 16:30 | RADRPT ---
EXAM DATE/TIME: 04/06/2017 11:37 [facility] COMPARISON: MRI BRAIN W/O CONTRAST, April 06, 2017, 11:37. INDICATIONS : Cephalgia. Tingling in upper extremities. MEDICAL HISTORY : Lupus. Hypertension. SURGICAL HISTORY : None. ENCOUNTER: Subsequent ACUITY: 2 day PAIN SCORE: 0/10 LOCATION: head. Patient was treated with . Please note a normal MRA of the brain does not entirely exclude the possibility of a small aneurysm, nor the possibility of distal intracranial vessel disease. TECHNIQUE: 3D time of flight MRA was performed. Source images, multiplanar STS MIP, and 3D volume MIP reconstru ctions were reviewed. FINDINGS: There is excellent visualization of the major intracranial arteries out to the second-order branch ve ssels. There is no evidence for aneurysm, vessel truncation or stenosis, and no evidence for vascula r malformation. CONCLUSION: Normal examination. Sanjay Cristobal Jr., MD on April 06, 2017 at 16:26 Board Certified Radiologist. This report was verified electronically.
--- NOTE | 2017-04-06 16:44 | HHI.PR ---
Subjective Remarks No new complaints. Objective Vitals Vital Signs Date Time Temp Pulse Resp B/P Pulse Ox O2 Delivery O2 Flow Rate FiO2 04/06/17 12:00 97.9 66 18 139/71 96 04/06/17 08:00 96 Room Air 04/06/17 08:00 98.4 66 18 180/84 96 04/06/17 04:00 98.0 58 18 140/63 93 04/06/17 00:00 Room Air 04/06/17 00:00 97.7 77 16 167/84 95 04/05/17 21:43 98.6 73 18 167/83 96 04/05/17 19:25 71 18 157/83 97 Room Air 04/05/17 18:04 98 Room Air 04/05/17 18:04 18 99 Room Air 04/05/17 18:02 98.2 69 18 173/89 98 Room Air 04/05/17 17:52 69 18 96 Room Air 04/05/17 16:44 99.2 80 18 166/83 94 Room Air 04/05/17 04/05/17 04/06/17 14:59 22:59 06:59 Intake Total 320 ml 0 ml Balance 320 ml 0 ml Intake Oral 320 ml 0 ml # Voids 1 2 # Bowel Movements 0 0 Result Diagram: 04/06/17 0757 04/06/17 0757 Imaging Last Impressions Carotid Artery Ultrasound 04/06/17 0000 Signed Impressions: Service Date/Time: Thursday, April 06, 2017 10:42 - CONCLUSION: Normal examination. Frederic Irving MD Brain MRI 04/06/17 0000 Signed Impressions: Service Date/Time: Thursday, April 06, 2017 11:37 - CONCLUSION: 1. Patchy areas of abnormal diffusion signal in both cerebellar hemispheres, the cerebellar vermis, the right occipital cortex in the medial aspect of the right temporal cortex. Findings are concerning for subacute cortical infarct. Please see above discussion. Meliton Almazan MD Head CT 04/05/171756 Signed Impressions: Service Date/Time: Wednesday, April 05, 2017 18:08 - CONCLUSION: Negative noncontrast head CT. Frederic Burgos MD Chest X-Ray 04/05/171756 Signed Impressions: Service Date/Time: Wednesday, April 05, 2017 17:56 - CONCLUSION: No evidence of acute cardiopulmonary disease. Frederic Burgos MD Cervical Spine CT 04/05/17 0000 Signed Impressions: Service Date/Time: Wednesday, April 05, 2017 18:09 - CONCLUSION: 1. Multilevel cervical spine degenerative changes as detailed above. 2. Moderate spinal stenosis and high-grade left foraminal stenosis at C5/C6. 3. Generally mild spinal stenosis and mild to moderate degrees of foraminal encroachment elsewhere. 4. No fracture or subluxation demonstrated. Frederic Burgos MD Objective Remarks GENERAL: This is a well-nourished, well-developed patient, in no apparent distress. CARDIOVASCULAR: Regular rate and rhythm without murmurs, gallops, or rubs. RESPIRATORY: Clear to auscultation. Breath sounds equal bilaterally. No wheezes , rales, or rhonchi. GASTROINTESTINAL: Abdomen soft, non-tender, nondistended. Normal active bowel sounds MUSCULOSKELETAL: Extremities without clubbing, cyanosis, or edema. NEURO: Alert & Oriented x4 to person, place, time, situation. Moves all ext x4 A/P Problem List: (1) CVA (cerebral vascular accident) Status: Acute Plan: - comgmt with Neurology - Pt admitted with c/o COLLAZO, LUE tingling & numbness, LLE pain - CT brain (04/05/17) --> NO acute findings - MRI brain (04/06/17) 1. Patchy areas of abnormal diffusion signal in both cerebellar hemispheres, the cerebellar vermis, the right occipital cortex in the medial aspect of the right temporal cortex. Findings are concerning for subacute cortical infarct. - b/l carotid US (04/06/17) --> no hemodynamically significant stenosis - MRI cervical spine (04/06/17) 1. Multilevel cervical spine degenerative changes as detailed above. 2. Moderate spinal stenosis and high-grade left foraminal stenosis at C5/C6. 3. Generally mild spinal stenosis and mild to moderate degrees of foraminal encroachment elsewhere. 4. No fracture or subluxation demonstrated. - r/o source of embolization - obtain RAMBO, r/o vegetation or PFO - obtain holter monitor, r/o Afib or other arrhythmia - start ASA, & discuss further anticoagulation with neurology - obtain hypercoag panel - obtain fasting lipid panel - IVFs - permissive HTN - (2) Intractable headache Status: Acute Plan: - see above (3) Neck pain Status: Chronic Plan: - see above (4) Altered mental status Status: Acute Plan: - see above (5) Degenerative cervical spinal stenosis Status: Chronic Plan: - see above Problem Qualifiers (1) Altered mental status: Diomedes Stallings DO Apr 06, 2017 16:44
[2017-04-06] MEDS ORDERED: ENALAPRILAT 1.25 MG/ML VIAL IV PRN (17:00)
[2017-04-06] MEDS ORDERED: LABETALOL HCL 100 MG/20 ML VIAL IV PRN (17:00)
--- NOTE | 2017-04-06 18:11 | MG ---
cc: ALEX DICKSON Lab No: [id number] Date: 04/06/17 Age: Sex: F Race: Drowsy awake and asleep, worsening headache, fever, migraines, lupus. Dilaudid. An 8 Hz 60 microvolt symmetric posterior rhythm is seen. At times some mild diffuse theta slowing is noted. Some bitemporal theta slowing is seen down to 5 Hz at times and this may be a little bit more prominent on the left than the right at times, other epoch 76 as well as the patient is noted to be asleep at that time. Still some slight asymmetry a little bit prominent, however, on the transverse montages and then a sharp slow wave is seen of higher amplitude over the left mid and posterior temporal head region at epoch 80, not so impressive on the bipolar montage, however, as the transverse montage and that occurred during hyperventilation. Photic stimulation was performed without significant posterior driving. IMPRESSION Some bitemporal slowing at times a little bit sharply contoured especially one episode with hyperventilation. There was also some sleep activity mixed in there. Clinical correlation is needed. The patient should be ruled out for any especially left temporal lobe abnormalities. Medication effect could also be considered. MD JOSE Brunson/ /5:37 PM /6:02 PM
[2017-04-06] MEDS: ASPIRIN 325 MG TAB PO SCH (18:15)
[2017-04-06 20:00] VITALS: BP 119/62; PULSE 75; PULSE 82; RESP 18; TEMP 98.2; O2SAT 93
[2017-04-06] MEDS: HEPARIN SODIUM - SQ 10,000 UNITS/ML VIAL SQ SCH (20:25)
[2017-04-06] MEDS: PRAVASTATIN SOD 40 MG TAB PO SCH (20:25)
[2017-04-06 22:05] LABS: APTT (PATIENT) 24.8 SEC (24.3-30.1); PROTHROMBIN TIME - PATIENT 11.2 SEC (9.8-11.6)
[2017-04-06] MEDS: SODIUM CHLOR 0.45% 1000 ML INJ 1,000 ML IV SCH (22:25)
[2017-04-07] VITALS (8 sets, daily range): BP systolic 118–145; BP diastolic 55–83; PULSE 70–89; RESP 18–20; TEMP 97.6–98.7; O2SAT 94–98
--- NOTE | 2017-04-07 07:37 | HHI.PR ---
Review/Management Diagnosis/Plan: (1) Acute ischemic multifocal posterior circulation stroke Plan: posterior circulation strokes etiology: embolic from heart vs proximal aortic arch plaque vs vertebral artery stenosis +HLD mri/mra images reviewed. mra cow nml carotids nml recs cardio eval for adair/event monitor check mra neck xanax prn anxiety aspirin/statin p.t. d/w pt the need for complaint f/u outpatient d/c planning to rehab vs home with p.t. after cardiac w/u d/w medical (2) Hypertensive encephalopathy Plan: 2/2 stroke probable underlying untreated htn (3) Migraine (4) TIA (transient ischemic attack) (5) Neck pain (6) Degenerative cervical spinal stenosis Subjective Subjective Comments No acute events reported feels anxious; wants something for anxiety prn has not seen a doctor in years No headache No chest pain No dyspnea Active Medications Current Medications Medications (Trade) Dose Ordered Sig/Briana Route Start Time Stop Time Status Last Admin (08/24 NS 1000 ml Inj) 1,000 ml @ 75 mls/hr [id number] IV 04/05/17 20:51 04/05/17 22:03 (NS Flush) 2 ml UNSCH PRN IV FLUSH 04/05/17 21:00 (NS Flush) 2 ml BID IV FLUSH 04/05/17 21:00 04/06/17 20:25 (Zofran Inj) 4 mg Q6H PRN IVP 04/05/17 21:00 (Narcan Inj) 0.4 mg UNSCH PRN IV 04/05/17 21:00 (Dominique-Colace) 1 tab BID PO 04/05/17 21:00 04/06/17 20:26 (Milk Of Magnesia Liq) 30 ml Q12H PRN PO 04/05/17 21:00 (Senokot) 17.2 mg Q12H PRN PO 04/05/17 21:00 (Dulcolax Supp) 10 mg DAILY PRN RECTAL 04/05/17 21:00 (Lactulose Liq) 30 ml DAILY PRN PO 04/05/17 21:00 (Dilaudid Pf Inj) 0.5 mg Q4H PRN IV PUSH 04/05/17 22:00 04/06/17 22:27 (Vasotec Inj) 1.25 mg Q4H PRN IV 04/06/17 17:00 (Trandate Inj) 10 mg Q2H PRN IV 04/06/17 17:00 (Aspirin) 325 mg DAILY PO 04/06/17 18:00 04/06/17 18:15 (Pravachol) 40 mg HS PO 04/06/17 21:00 04/06/17 20:25 (Heparin Inj) 5,000 units BID SQ 04/06/17 21:00 04/06/17 20:25 Allergies Allergies Coded Allergies No Known Allergies (Dbpsyjwo61/29/06) Review of Systems All other ROS: ROS reviewed as documented in chart Exam I&O / VS 04/06/17 04/06/17 04/07/17 15:00 23:00 07:00 Intake Total 960 ml 1929 ml 240 ml Balance 960 ml 1929 ml 240 ml Intake Oral 960 ml 360 ml 240 ml IV Total 1569 ml # Voids 2 4 2 # Bowel Movements 0 1 0 Vital Signs Date Time Temp Pulse Resp B/P Pulse Ox O2 Delivery O2 Flow Rate FiO2 04/07/17 04:00 Room Air 04/07/17 04:00 98.7 70 20 125/60 95 04/07/17 00:00 Room Air 04/07/17 00:00 98.2 85 18 118/55 94 04/06/17 20:00 98.2 82 18 119/62 93 04/06/17 20:00 Room Air 04/06/17 20:00 75 04/06/17 16:00 98.1 73 18 126/65 94 04/06/17 12:00 97.9 66 18 139/71 96 04/06/17 08:00 96 Room Air 04/06/17 08:00 98.4 66 18 180/84 96 General: Alert and Oriented, No acute distress Eye: EOMI Respiratory: Non-labored respirations Neurologic: Alert, Oriented, Normal sensory, CN II-XII intact, Gag reflex normal, Normal DTR's Psychiatric: Cooperative, Appropriate mood & affect, Normal judgement, Non- suicidal Exam Comments alert, ox 3, anxious, eomi, vff, ou 3-2mm, face sym, mild facial hypomimia, younger to gravity, no drift, mild le dystaxia, msr sym 1-2+ Objective Micro and Labs Laboratory Tests Test 04/06/17 04/06/17 04/06/17 07:57 16:18 21:18 White Blood Count 11.0 Red Blood Count 4.37 Hemoglobin 15.1 Hematocrit 44.1 Mean Corpuscular Volume 100.8 Mean Corpuscular Hemoglobin 34.5 Mean Corpuscular Hemoglobin 34.3 Concent Red Cell Distribution Width 14.2 Platelet Count 224 Mean Platelet Volume 7.3 Neutrophils (%) (Auto) 56.8 Lymphocytes (%) (Auto) 33.2 Monocytes (%) (Auto) 8.7 Eosinophils (%) (Auto) 0.9 Basophils (%) (Auto) 0.4 Neutrophils # (Auto) 6.2 Lymphocytes # (Auto) 3.6 Monocytes # (Auto) 1.0 Eosinophils # (Auto) 0.1 Basophils # (Auto) 0.0 CBC Comment DIFF FINAL Differential Comment Sodium Level 138 Potassium Level 3.8 Chloride Level 103 Carbon Dioxide Level 26.9 Anion Gap 8 Blood Urea Nitrogen 22 Creatinine 1.48 Estimat Glomerular Filtration 36 Rate Random Glucose 85 Hemoglobin A1c 5.2 Calcium Level 9.0 Total Bilirubin 0.5 Aspartate Amino Transf 13 (AST/SGOT) Alanine Aminotransferase 21 (ALT/SGPT) Alkaline Phosphatase 97 C-Reactive Protein LESS THAN 0.29 0.50 Total Protein 7.4 Albumin 3.5 Triglycerides Level 170 Cholesterol Level 228 LDL Cholesterol 141 HDL Cholesterol 53.3 Cholesterol/HDL Ratio 4.27 Vitamin B12 Level 188 Thyroid Stimulating Hormone 2.270 3rd Gen Ammonia 23 Prothrombin Time 11.2 Prothromb Time International 1.0 Ratio Activated Partial 24.8 Thromboplast Time Fibrinogen 275 D-Dimer Quantitative (PE/DVT) 0.36 Date/Time Procedure Status Source Growth 04/05/17 18:05 Aerobic Blood Culture - Preliminary Resulted Blood Peripheral NO GROWTH IN 1 DAY 04/05/17 18:05 Anaerobic Blood Culture - Preliminary Resulted Blood Peripheral NO GROWTH IN 1 DAY Problem Qualifiers (1) Acute ischemic multifocal posterior circulation stroke: Qualified Code: I63.539 - Acute ischemic multifocal posterior circulation stroke, unspecified laterality (2) Migraine: (3) TIA (transient ischemic attack): Qualified Code: G45.9 - Transient cerebral ischemia, unspecified type Johnathan Garcia MD Apr 07, 2017 07:37
[2017-04-07] MEDS: HEPARIN SODIUM - SQ 10,000 UNITS/ML VIAL SQ SCH ×2 (07:56→21:38)
[2017-04-07] MEDS: ASPIRIN 325 MG TAB PO SCH (07:57)
[2017-04-07] MEDS: ALPRAZolam 0.25 MG TAB PO PRN ×2 (07:57→21:37)
[2017-04-07] MEDS: DOCUSATE SODIUM 50 MG/SENNA 8.6 MG TAB PO SCH ×2 (07:59→21:00)
[2017-04-07] MEDS: SODIUM CHLORIDE 0.9% FLUSH 10 ML FLUSH IV FLUSH SCH ×2 (07:59→21:00)
--- NOTE | 2017-04-07 08:39 | PD.CONS ---
HPI Service cardiology Consult Requested By Dr. Stallings Reason for Consult RAMBO Primary Care Physician Noel Leblanc MD History of Present Illness 62 yo WF with history of lupus and HLD admitted on 04/05/17 for intractable COLLAZO and L-sided paresthesias found to have suffered an ischemic CVA. We have been consulted to consider a RAMBO to rule cardioembolic source. Experienced reoccurrence of COLLAZO last night alleviated with Dilaudid. No chest pain, SOB or palpitations. Review of Systems Consitutional: DENIES: Fatigue, Fever, Chills, Weight gain, Weight loss Respiratory: COMPLAINS OF: See HPI, DENIES: Cough, Snoring, Shortness of breath, Wheezing, Sputum production Cardiovascular: COMPLAINS OF: See HPI, DENIES: Chest pain, Palpitations, Syncope, Tachycardia Gastrointestinal: DENIES: Nausea, Vomiting, Change in bowel habits, Reflux, Bloody stools, Melena Past Family Social History Allergies: Coded Allergies: No Known Allergies (Verified , 08/20/06) Past Medical History hypertension,lupus Past Surgical History none Reported Medications Reported Meds & Active Scripts Active Reported Ultram (Tramadol HCl) 50 Mg Tab 50 Mg PO Q6H PRN Prednisone 50 Mg Tab 50 Mg PO DAILY Cipro Liq (Ciprofloxacin) 500 Mg/5 Ml Susp 500 Mg PO BID Active Ordered Medications Current Medications Medications (Trade) Dose Ordered Sig/Briana Route Start Time Stop Time Status Last Admin (08/24 NS 1000 ml Inj) 1,000 ml @ 75 mls/hr [id number] IV 04/05/17 20:51 04/05/17 22:03 (NS Flush) 2 ml UNSCH PRN IV FLUSH 04/05/17 21:00 (NS Flush) 2 ml BID IV FLUSH 04/05/17 21:00 04/06/17 20:25 (Zofran Inj) 4 mg Q6H PRN IVP 04/05/17 21:00 (Narcan Inj) 0.4 mg UNSCH PRN IV 04/05/17 21:00 (Dominique-Colace) 1 tab BID PO 04/05/17 21:00 04/06/17 20:26 (Milk Of Magnesia Liq) 30 ml Q12H PRN PO 04/05/17 21:00 (Senokot) 17.2 mg Q12H PRN PO 04/05/17 21:00 (Dulcolax Supp) 10 mg DAILY PRN RECTAL 04/05/17 21:00 (Lactulose Liq) 30 ml DAILY PRN PO 04/05/17 21:00 (Dilaudid Pf Inj) 0.5 mg Q4H PRN IV PUSH 04/05/17 22:00 04/06/17 22:27 (Vasotec Inj) 1.25 mg Q4H PRN IV 04/06/17 17:00 (Trandate Inj) 10 mg Q2H PRN IV 04/06/17 17:00 (Aspirin) 325 mg DAILY PO 04/06/17 18:00 04/07/17 07:57 (Pravachol) 40 mg HS PO 04/06/17 21:00 04/06/17 20:25 (Heparin Inj) 5,000 units BID SQ 04/06/17 21:00 04/07/17 07:56 (Xanax) 0.25 mg Q8H PRN PO 04/07/17 07:45 04/07/17 07:57 Family History cholesterol Social History NS,ND Physical Exam Vital Signs Vital Signs Date Time Temp Pulse Resp B/P Pulse Ox O2 Delivery O2 Flow Rate FiO2 04/07/17 04:00 Room Air 04/07/17 04:00 98.7 70 20 125/60 95 04/07/17 00:00 Room Air 04/07/17 00:00 98.2 85 18 118/55 94 04/06/17 20:00 98.2 82 18 119/62 93 04/06/17 20:00 Room Air 04/06/17 20:00 75 04/06/17 16:00 98.1 73 18 126/65 94 04/06/17 12:00 97.9 66 18 139/71 96 Physical Exam HEAD: Atraumatic. Normocephalic. EYES: Pupils equal and round. No scleral icterus. No injection or drainage. ENT: No nasal bleeding or discharge. Mucous membranes pink and moist. NECK: Trachea midline. No JVD. CARDIOVASCULAR: Regular rate and rhythm. No murmurs RESPIRATORY: No accessory muscle use. Clear to auscultation. Breath sounds equal bilaterally. GASTROINTESTINAL: Abdomen soft, non-tender, nondistended. MUSCULOSKELETAL: Extremities without clubbing, cyanosis, or edema. No obvious deformities. NEUROLOGICAL: Awake and alert. No obvious cranial nerve deficits. Normal speech. PSYCHIATRIC: Appropriate mood and affect; insight and judgment normal. Laboratory Laboratory Tests Test 04/06/17 04/06/17 16:18 21:18 Ammonia 23 C-Reactive Protein 0.50 Prothrombin Time 11.2 Prothromb Time International 1.0 Ratio Activated Partial 24.8 Thromboplast Time Fibrinogen 275 D-Dimer Quantitative (PE/DVT) 0.36 Date/Time Procedure Status Source Growth 04/05/17 18:05 Aerobic Blood Culture - Preliminary Resulted Blood Peripheral NO GROWTH IN 1 DAY 04/05/17 18:05 Anaerobic Blood Culture - Preliminary Resulted Blood Peripheral NO GROWTH IN 1 DAY Result Diagram: 04/06/17 0757 04/06/17 0757 Assessment and Plan Problem List: (1) CVA (cerebral vascular accident) Assessment and Plan 62 yo WF with lupus and HLD with no prior cardiac history admitted on 04/05/17 with intractable COLLAZO and L-sided paresthesias found to have suffered multifocal ischemic CVA. Will plan for RAMBO to rule out cardioembolic source. keep NPO. procedure likely to be done this afternoon. Bryanna Chow Apr 07, 2017 08:39
[2017-04-07] MEDS ORDERED: PROPOFOL 200 MG/20 ML AMP IV ONE (09:36)
[2017-04-07 12:12] LABS: HDL CHOLESTEROL 38.9 MG/DL (40.0-60.0)
[2017-04-07] MEDS: SODIUM CHLOR 0.45% 1000 ML INJ 1,000 ML IV SCH (12:51)
[2017-04-07] MEDS ORDERED: MISCELLANEOUS NURSING INFORMATION XX PRN (15:00)
--- NOTE | 2017-04-07 16:03 | HHI.PR ---
Subjective Remarks No new complaints. Objective Vitals Vital Signs Date Time Temp Pulse Resp B/P Pulse Ox O2 Delivery O2 Flow Rate FiO2 04/07/17 08:20 Room Air 04/07/17 08:20 78 04/07/17 08:00 98.0 78 20 133/76 94 04/07/17 04:00 Room Air 04/07/17 04:00 98.7 70 20 125/60 95 04/07/17 00:00 Room Air 04/07/17 00:00 98.2 85 18 118/55 94 04/06/17 20:00 98.2 82 18 119/62 93 04/06/17 20:00 Room Air 04/06/17 20:00 75 04/06/17 16:00 98.1 73 18 126/65 94 04/06/17 04/06/17 04/07/17 14:59 22:59 06:59 Intake Total 960 ml 1929 ml 240 ml Balance 960 ml 1929 ml 240 ml Intake Oral 960 ml 360 ml 240 ml IV Total 1569 ml # Voids 2 4 2 # Bowel Movements 0 1 0 Result Diagram: 04/06/17 0757 04/06/17 0757 Other Results Laboratory Tests Test 04/05/17 04/05/17 04/05/17 04/05/17 17:50 18:05 18:42 18:50 White Blood Count 9.6 TH/MM3 Red Blood Count 4.29 MIL/MM3 Hemoglobin 14.8 GM/DL Hematocrit 43.4 % Mean Corpuscular Volume 101.0 FL Mean Corpuscular Hemoglobin 34.5 PG Mean Corpuscular Hemoglobin 34.1 % Concent Red Cell Distribution Width 14.3 % Platelet Count 238 TH/MM3 Mean Platelet Volume 7.3 FL Neutrophils (%) (Auto) 86.6 % Lymphocytes (%) (Auto) 8.5 % Monocytes (%) (Auto) 4.6 % Eosinophils (%) (Auto) 0.1 % Basophils (%) (Auto) 0.2 % Neutrophils # (Auto) 8.3 TH/MM3 Lymphocytes # (Auto) 0.8 TH/MM3 Monocytes # (Auto) 0.4 TH/MM3 Eosinophils # (Auto) 0.0 TH/MM3 Basophils # (Auto) 0.0 TH/MM3 CBC Comment DIFF FINAL Differential Comment Sodium Level 136 MEQ/L Potassium Level 4.2 MEQ/L Chloride Level 101 MEQ/L Carbon Dioxide Level 28.8 MEQ/L Anion Gap 6 MEQ/L Blood Urea Nitrogen 24 MG/DL Creatinine 1.71 MG/DL Estimat Glomerular Filtration 30 ML/MIN Rate Random Glucose 126 MG/DL Lactic Acid Level 1.1 mmol/L Calcium Level 8.6 MG/DL Total Bilirubin 0.3 MG/DL Aspartate Amino Transf 14 U/L (AST/SGOT) Alanine Aminotransferase 23 U/L (ALT/SGPT) Alkaline Phosphatase 101 U/L Total Protein 7.3 GM/DL Albumin 3.6 GM/DL Erythrocyte Sedimentation Rate 10 mm/hr Prothrombin Time 11.0 SEC Prothromb Time International 1.0 RATIO Ratio Urine Color LIGHT-YELLOW Urine Turbidity CLEAR Urine pH 5.5 Urine Specific Qulin 1.010 Urine Protein NEG mg/dL Urine Glucose (UA) NEG mg/dL Urine Ketones NEG mg/dL Urine Occult Blood TRACE Urine Nitrite NEG Urine Bilirubin NEG Urine Urobilinogen LESS THAN 2.0 MG/DL Urine Leukocyte Esterase NEG Urine RBC LESS THAN 1 /hpf Urine WBC LESS THAN 1 /hpf Urine Squamous Epithelial <1 /hpf Cells Microscopic Urinalysis Comment CATH-CULT NOT IND Test 04/06/17 04/06/17 04/06/17 04/07/17 07:57 16:18 21:18 09:35 White Blood Count 11.0 TH/MM3 Red Blood Count 4.37 MIL/MM3 Hemoglobin 15.1 GM/DL Hematocrit 44.1 % Mean Corpuscular Volume 100.8 FL Mean Corpuscular Hemoglobin 34.5 PG Mean Corpuscular Hemoglobin 34.3 % Concent Red Cell Distribution Width 14.2 % Platelet Count 224 TH/MM3 Mean Platelet Volume 7.3 FL Neutrophils (%) (Auto) 56.8 % Lymphocytes (%) (Auto) 33.2 % Monocytes (%) (Auto) 8.7 % Eosinophils (%) (Auto) 0.9 % Basophils (%) (Auto) 0.4 % Neutrophils # (Auto) 6.2 TH/MM3 Lymphocytes # (Auto) 3.6 TH/MM3 Monocytes # (Auto) 1.0 TH/MM3 Eosinophils # (Auto) 0.1 TH/MM3 Basophils # (Auto) 0.0 TH/MM3 CBC Comment DIFF FINAL Differential Comment Sodium Level 138 MEQ/L Potassium Level 3.8 MEQ/L Chloride Level 103 MEQ/L Carbon Dioxide Level 26.9 MEQ/L Anion Gap 8 MEQ/L Blood Urea Nitrogen 22 MG/DL Creatinine 1.48 MG/DL Estimat Glomerular Filtration 36 ML/MIN Rate Random Glucose 85 MG/DL Hemoglobin A1c 5.2 % Calcium Level 9.0 MG/DL Total Bilirubin 0.5 MG/DL Aspartate Amino Transf 13 U/L (AST/SGOT) Alanine Aminotransferase 21 U/L (ALT/SGPT) Alkaline Phosphatase 97 U/L C-Reactive Protein LESS THAN 0.29 0.50 MG/DL MG/DL Total Protein 7.4 GM/DL Albumin 3.5 GM/DL Triglycerides Level 170 MG/DL 188 MG/DL Cholesterol Level 228 MG/DL 170 MG/DL LDL Cholesterol 141 MG/DL 94 MG/DL HDL Cholesterol 53.3 MG/DL 38.9 MG/DL Cholesterol/HDL Ratio 4.27 RATIO 4.37 RATIO Vitamin B12 Level 188 PG/ML Thyroid Stimulating Hormone 2.270 uIU/ML 3rd Gen Ammonia 23 MCMOL/L Prothrombin Time 11.2 SEC Prothromb Time International 1.0 RATIO Ratio Activated Partial 24.8 SEC Thromboplast Time Fibrinogen 275 mg/dL D-Dimer Quantitative (PE/DVT) 0.36 MG/L FEU Imaging Last Impressions Carotid Artery Ultrasound 04/06/17 Signed Impressions: Service Date/Time: Thursday, April 06, 2017 10:42 - CONCLUSION: Normal examination. Frederic Irving MD Brain MRI 04/06/17 Signed Impressions: Service Date/Time: Thursday, April 06, 2017 11:37 - CONCLUSION: 1. Patchy areas of abnormal diffusion signal in both cerebellar hemispheres, the cerebellar vermis, the right occipital cortex in the medial aspect of the right temporal cortex. Findings are concerning for subacute cortical infarct. Please see above discussion. Meliton Almazan MD Head CT [id number]/05/[id number] Signed Impressions: Service Date/Time: Wednesday, April 05, 2017 18:08 - CONCLUSION: Negative noncontrast head CT. Frederic Burgos MD Chest X-Ray [id number]/05/[id number] Signed Impressions: Service Date/Time: Wednesday, April 05, 2017 17:56 - CONCLUSION: No evidence of acute cardiopulmonary disease. Frederic Burgos MD Cervical Spine CT 04/05/17 Signed Impressions: Service Date/Time: Wednesday, April 05, 2017 18:09 - CONCLUSION: 1. Multilevel cervical spine degenerative changes as detailed above. 2. Moderate spinal stenosis and high-grade left foraminal stenosis at C5/C6. 3. Generally mild spinal stenosis and mild to moderate degrees of foraminal encroachment elsewhere. 4. No fracture or subluxation demonstrated. Frederic Burgos MD Objective Remarks General: NAD, AAOx3 Chest: CTA Cardiac: Regular Abd: +BS, soft ND/NT Ext: No edema A/P Problem List: (1) CVA (cerebral vascular accident) Status: Acute Plan: - comgmt with Neurology - Pt admitted with c/o COLLAZO, LUE tingling & numbness, LLE pain - CT brain (04/05/17) --> NO acute findings - MRI brain (04/06/17) --> Patchy areas of abnormal diffusion signal in both cerebellar hemispheres, the cerebellar vermis, the right occipital cortex in the medial aspect of the right temporal cortex. Findings are concerning for subacute cortical infarct. - Carotid US (04/06/17) --> no hemodynamically significant stenosis - MRI cervical spine (04/06/17) --> Multilevel cervical spine degenerative changes as detailed above. Moderate spinal stenosis and high-grade left foraminal stenosis at C5/C6. Generally mild spinal stenosis and mild to moderate degrees of foraminal encroachment elsewhere. No fracture or subluxation demonstrated. - Pt had RAMBO today which noted an LA thrombus - Holter monitor is pending. - Pt will likely need an event monitor - start ASA, & discuss further anticoagulation with neurology - Hypercoag panel is pending - FLP --> Total cholesterol 170, LDL 94, HDL 38.9, Triglycerides 188 - IVFs - permissive HTN, BP is stable today (2) Intractable headache Status: Acute Plan: - see above (3) Neck pain Status: Chronic Plan: - see above (4) Altered mental status Status: Acute Plan: - see above (5) Degenerative cervical spinal stenosis Status: Chronic Plan: - see above Assessment and Plan Case d/w Dr. Breaux (04/07/17) - RAMBO showed left atrial thrombus - underlying paroxysmal Atrial fibrillation? - telemetry: NSR - Pt will need event monitor, prolonged - continue ASA for now - will need to start full anticoagulation once cleared by Neurology - will d/w Neurology Problem Qualifiers (1) Altered mental status: Vee Acevedo Apr 07, 2017 16:03 Diomedes Stallings DO Apr 07, 2017 17:07
--- NOTE | 2017-04-07 16:35 | ECHRPT ---
Indication: CONCLUSIONS The left ventricular systolic function is normal with an estimated ejection fraction in the range o f 60-65%. Mild concentric left ventricular hypertrophy. The left atrial size is mildly dilated. Thrombus present in the left atrial appendage. Normal atrial septal thickness without atrial level shunting by limited color doppler interrogation. No atrial level shunt is observed with agitated saline contrast administration. Mild thickening of the mitral valve leaflets. Mild mitral valve regurgitation. Mild mitral annular calcification. No mitral valve stenosis. Mild thickening of the tricuspid valve leaflets. There is mild tricuspid valve regurgitation. BP: / HR: Rhythm: Sinus MEASUREMENTS (Male / Female) Normal Values Technical Quality:Excellent DOPPLER TV Peak Velocity 257.0 cm/s Medications Complications There were no complications prior to, during or in recovery from the transesophag eal echocardiogram.. Proc. Components The patient was brought to the diagnostic imaging area in a fasting state after o btaining an informed consent. The patient was premedicated with propofol. The posterior pharynx was s prayed with Cetacaine spray and the patient was administered viscous Xylocaine 2%. The RAMBO probe was p assed into the posterior pharynx , mid-esophagus, distal esophagus, and gastric fundus. RAMBO was performed at multiple levels. The patient tolerated the procedure well and there were no complications. The patient was transferred to the floor in satisfactory condition.. FINDINGS LEFT VENTRICLE The left ventricular systolic function is normal with an estimated ejection fraction in the range o f 60-65%. Mild concentric left ventricular hypertrophy. RIGHT VENTRICLE Normal right ventricular size and systolic function. LEFT ATRIUM The left atrial size is mildly dilated. RIGHT ATRIUM The right atrial size is normal. ATRIAL APPENDAGES Thrombus present in the left atrial appendage. ATRIAL SEPTUM Normal atrial septal thickness without atrial level shunting by limited color doppler interrogation. No atrial level shunt is observed with agitated saline contrast administration. AORTA The aortic root and proximal ascending aorta are normal in size on limited imaging. MITRAL VALVE Mild thickening of the mitral valve leaflets. Mild mitral valve regurgitation. Mild mitral annular calcification. No mitral valve stenosis. AORTIC VALVE Trileaflet aortic valve. No aortic valve stenosis or regurgitation. TRICUSPID VALVE Mild thickening of the tricuspid valve leaflets. There is mild tricuspid valve regurgitation. VESSELS The inferior vena cava is normal in size. PULMONARY VALVE The pulmonary valve is not well visualized. PERICADIUM No pericardial effusion. Shashank Breaux MD, FACC (Electronically Signed) Final Date:07 April 2017 16:35
[2017-04-07] MEDS: PRAVASTATIN SOD 40 MG TAB PO SCH (21:37)
[2017-04-08] VITALS (7 sets, daily range): BP systolic 108–125; BP diastolic 60–72; PULSE 75–94; RESP 18–20; TEMP 97.9–98.8; O2SAT 94–98
[2017-04-08] MEDS: ALPRAZolam 0.25 MG TAB PO PRN ×2 (08:31→20:17)
[2017-04-08] MEDS: ASPIRIN 325 MG TAB PO SCH (08:31)
[2017-04-08] MEDS: SODIUM CHLORIDE 0.9% FLUSH 10 ML FLUSH IV FLUSH SCH ×2 (08:31→20:16)
[2017-04-08] MEDS: DOCUSATE SODIUM 50 MG/SENNA 8.6 MG TAB PO SCH ×2 (08:31→20:15)
[2017-04-08] MEDS: HEPARIN SODIUM - SQ 10,000 UNITS/ML VIAL SQ SCH (08:31)
--- NOTE | 2017-04-08 08:52 | HHI.PR ---
Review/Management Diagnosis/Plan: (1) Acute ischemic multifocal posterior circulation stroke Plan: posterior circulation strokes etiology: embolic from heart. RAMBO +left atrial appendage clot +HLD mri/mra images reviewed. mra cow nml carotids nml recs appreciate cardiology ok to start coumadin and bridge with lovenox 60mg qd. r/b d/w pt. agrees to tx small scattered strokes; is risk for ICH transformation but should be on the lower side neuro stable rehab vs home with p.t. planning d/w medical (2) Hypertensive encephalopathy Plan: 2/2 stroke probable underlying untreated htn (3) Migraine (4) TIA (transient ischemic attack) (5) Neck pain (6) Degenerative cervical spinal stenosis Subjective Subjective Comments No acute events reported; slept well. anxiety improved no clumsiness No headache No chest pain No dyspnea Active Medications Current Medications Medications (Trade) Dose Ordered Sig/Briana Route Start Time Stop Time Status Last Admin (NS Flush) 2 ml UNSCH PRN IV FLUSH 04/05/17 21:00 (NS Flush) 2 ml BID IV FLUSH 04/05/17 21:00 04/08/17 08:31 (Zofran Inj) 4 mg Q6H PRN IVP 04/05/17 21:00 (Narcan Inj) 0.4 mg UNSCH PRN IV 04/05/17 21:00 (Dominique-Colace) 1 tab BID PO 04/05/17 21:00 04/06/17 20:26 (Milk Of Magnesia Liq) 30 ml Q12H PRN PO 04/05/17 21:00 (Senokot) 17.2 mg Q12H PRN PO 04/05/17 21:00 (Dulcolax Supp) 10 mg DAILY PRN RECTAL 04/05/17 21:00 (Lactulose Liq) 30 ml DAILY PRN PO 04/05/17 21:00 (Dilaudid Pf Inj) 0.5 mg Q4H PRN IV PUSH 04/05/17 22:00 04/06/17 22:27 (Vasotec Inj) 1.25 mg Q4H PRN IV 04/06/17 17:00 (Trandate Inj) 10 mg Q2H PRN IV 04/06/17 17:00 (Aspirin) 325 mg DAILY PO 04/06/17 18:00 04/08/17 08:31 (Pravachol) 40 mg HS PO 04/06/17 21:00 04/07/17 21:37 (Heparin Inj) 5,000 units BID SQ 04/06/17 21:00 04/08/17 08:31 (Xanax) 0.25 mg Q8H PRN PO 04/07/17 07:45 04/08/17 08:31 Miscellaneous Information 1 UNSCH PRN XX 04/07/17 15:00 04/10/17 14:59 Allergies Allergies Coded Allergies No Known Allergies ([id number]/29/06) Review of Systems All other ROS: ROS reviewed as documented in chart Exam I&O / VS 04/07/17 04/07/17 04/08/17 14:59 22:59 06:59 Intake Total 0 ml 290 ml 0 ml Balance 0 ml 290 ml 0 ml Intake Oral 0 ml 290 ml 0 ml # Voids 2 2 0 # Bowel Movements 2 Vital Signs Date Time Temp Pulse Resp B/P Pulse Ox O2 Delivery O2 Flow Rate FiO2 04/08/17 04:00 97.9 75 20 123/60 94 04/08/17 00:00 98.3 75 20 116/68 94 04/07/17 21:34 Room Air 04/07/17 20:20 89 04/07/17 20:00 98.4 87 20 143/78 98 04/07/17 16:00 98.6 79 20 145/83 97 04/07/17 12:00 97.6 79 20 126/60 95 General: Alert and Oriented, No acute distress Eye: EOMI Respiratory: Non-labored respirations Neurologic: Alert, Oriented, Normal sensory, CN II-XII intact, Gag reflex normal, Normal DTR's Psychiatric: Cooperative, Appropriate mood & affect, Normal judgement, Non- suicidal Exam Comments looks well, mild ?malar rash on face, alert, ox 3, eomi, vff, ou 3-2mm, face sym , mild facial hypomimia, younger to gravity, no drift, msr sym 1-2+ Objective Micro and Labs Laboratory Tests Test 04/07/17 09:35 Triglycerides Level 188 Cholesterol Level 170 LDL Cholesterol 94 HDL Cholesterol 38.9 Cholesterol/HDL Ratio 4.37 Date/Time Procedure Status Source Growth 04/05/17 18:05 Aerobic Blood Culture - Preliminary Resulted Blood Peripheral NO GROWTH IN 2 DAYS 04/05/17 18:05 Anaerobic Blood Culture - Preliminary Resulted Blood Peripheral NO GROWTH IN 2 DAYS Problem Qualifiers (1) Acute ischemic multifocal posterior circulation stroke: Qualified Code: I63.539 - Acute ischemic multifocal posterior circulation stroke, unspecified laterality (2) Migraine: (3) TIA (transient ischemic attack): Qualified Code: G45.9 - Transient cerebral ischemia, unspecified type Johnathan Garcia MD Apr 08, 2017 08:52
[2017-04-08] MEDS: ENOXAPARIN SODIUM 60 MG/0.6 ML SYRINGE SQ SCH (11:10)
[2017-04-08 13:23] LABS: PROTHROMBIN TIME - PATIENT 11.4 SEC (9.8-11.6)
--- NOTE | 2017-04-08 15:31 | HHI.PR ---
Subjective Remarks Pt feeling overall well today Pt did have some dizziness after ambulating with PT today Objective Vitals Vital Signs Date Time Temp Pulse Resp B/P Pulse Ox O2 Delivery O2 Flow Rate FiO2 04/08/17 12:00 98.3 87 20 108/65 98 04/08/17 08:30 94 Room Air 04/08/17 08:00 98.1 80 20 117/68 96 04/08/17 07:59 81 04/08/17 04:00 97.9 75 20 123/60 94 04/08/17 00:00 98.3 75 20 116/68 94 04/07/17 21:34 Room Air 04/07/17 20:20 89 04/07/17 20:00 98.4 87 20 143/78 98 04/07/17 16:00 98.6 79 20 145/83 97 04/07/17 04/07/17 04/08/17 15:00 23:00 07:00 Intake Total 0 ml 290 ml 0 ml Balance 0 ml 290 ml 0 ml Intake Oral 0 ml 290 ml 0 ml # Voids 2 2 0 # Bowel Movements 2 Result Diagram: 04/06/17 0757 04/06/17 0757 Other Results Laboratory Tests Test 04/06/17 04/06/17 04/07/17 04/08/17 16:18 21:18 09:35 12:29 Ammonia 23 MCMOL/L C-Reactive Protein 0.50 MG/DL Prothrombin Time 11.2 SEC 11.4 SEC Prothromb Time International 1.0 RATIO 1.0 RATIO Ratio Activated Partial 24.8 SEC Thromboplast Time Fibrinogen 275 mg/dL D-Dimer Quantitative (PE/DVT) 0.36 MG/L FEU Triglycerides Level 188 MG/DL Cholesterol Level 170 MG/DL LDL Cholesterol 94 MG/DL HDL Cholesterol 38.9 MG/DL Cholesterol/HDL Ratio 4.37 RATIO Imaging Last Impressions Carotid Artery Ultrasound 04/06/17 0000 Signed Impressions: Service Date/Time: Thursday, April 06, 2017 10:42 - CONCLUSION: Normal examination. Freedric Irving MD Brain MRI 04/06/17 0000 Signed Impressions: Service Date/Time: Thursday, April 06, 2017 11:37 - CONCLUSION: 1. Patchy areas of abnormal diffusion signal in both cerebellar hemispheres, the cerebellar vermis, the right occipital cortex in the medial aspect of the right temporal cortex. Findings are concerning for subacute cortical infarct. Please see above discussion. Meliton Almazan MD Head CT 04/05/[id number] Signed Impressions: Service Date/Time: Wednesday, April 05, 2017 18:08 - CONCLUSION: Negative noncontrast head CT. Frederic Burgos MD Chest X-Ray [id number]/05/171756 Signed Impressions: Service Date/Time: Wednesday, April 05, 2017 17:56 - CONCLUSION: No evidence of acute cardiopulmonary disease. Frederic Burgos MD Cervical Spine CT 04/05/17 0000 Signed Impressions: Service Date/Time: Wednesday, April 05, 2017 18:09 - CONCLUSION: 1. Multilevel cervical spine degenerative changes as detailed above. 2. Moderate spinal stenosis and high-grade left foraminal stenosis at C5/C6. 3. Generally mild spinal stenosis and mild to moderate degrees of foraminal encroachment elsewhere. 4. No fracture or subluxation demonstrated. Frederic Burgos MD Objective Remarks General: NAD, AAOx3 Chest: CTA Cardiac: Regular Abd: +BS, soft ND/NT Ext: No edema A/P Problem List: (1) CVA (cerebral vascular accident) Status: Acute Plan: - comgmt with Neurology - Pt admitted with c/o COLLAZO, LUE tingling & numbness, LLE pain - CT brain (04/05/17) --> NO acute findings - MRI brain (04/06/17) --> Patchy areas of abnormal diffusion signal in both cerebellar hemispheres, the cerebellar vermis, the right occipital cortex in the medial aspect of the right temporal cortex. Findings are concerning for subacute cortical infarct. - Carotid US (04/06/17) --> no hemodynamically significant stenosis - MRI cervical spine (04/06/17) --> Multilevel cervical spine degenerative changes as detailed above. Moderate spinal stenosis and high-grade left foraminal stenosis at C5/C6. Generally mild spinal stenosis and mild to moderate degrees of foraminal encroachment elsewhere. No fracture or subluxation demonstrated. - Pt had RAMBO today which noted an LA thrombus - Holter monitor is pending. - Pt will likely need an event monitor - Hypercoag panel is pending - FLP --> Total cholesterol 170, LDL 94, HDL 38.9, Triglycerides 188 - BP is stable, pt not on any antihypertensives - Pt started on Coumadin with Lovenox bridge. (2) Intractable headache Status: Acute Plan: - see above (3) Neck pain Status: Chronic Plan: - see above (4) Altered mental status Status: Acute Plan: - see above (5) Degenerative cervical spinal stenosis Status: Chronic Plan: - see above Assessment and Plan Patient examined. Assessment and plan formulated with Vee Acevedo PA-C. I agree with the above. Case d/w Neurology, Dr. Garcia, 04/07/17 Pt started on coumadin/lovenox anticipate d/c to home with [facility] 04/09/17 Problem Qualifiers (1) Altered mental status: Vee Acevedo Apr 08, 2017 15:31 Diomedes Stallings DO Apr 08, 2017 17:21
[2017-04-08] MEDS: WARFARIN SOD 5 MG TAB PO SCH (16:48)
--- NOTE | 2017-04-08 16:51 | HM ---
Date Performed: 04/06/2017 Time Performed: 17:24:00 HOOKUP DATE: 04/06/17 05:24:00 PM Tue ANALYSIS START TIME: 04/06/2017 5:29:00 PM ANALYSIS END TIME: 04/07/2017 4:51:00 PM PATIENT AGE: 62 PATIENT HEIGHT: 63 PATIENT WEIGHT: 154 DRUG LIST: room # 1403 PATIENT DIAGNOSIS: intractable headache with AMSand neuro symptoms TEST NARRATIVE: The patient's average heart rate was 74 BPM. No episodes of tachycardia wer e noted. No episodes of bradycardia were noted. No pauses exceeding 2.0 seconds were noted. 2 ventricular ectopics, which represented < 1% of the total beat count, were noted. The highest vent ricular ectopic frequency occurred from 10:00 PM to 11:00 PM Tue. During this time 1 VE(s) occurred. Ventricular ectopics were observed as 2 isolated beat(s) only. No couplets or runs were noted. No supraventricular ectopics were noted. No episodes of ST depression (defined as -1.0 mm or mor e) were noted in channel 1. No episodes of ST depression (defined as -1.0 mm or more) were noted in channel 2. No episodes of ST depression (defined as -1.0 mm or more) were noted in channel 3. TEST INTERPRETATION: 1. Predominant underlying rhythm is sinus 2. NO pauses > 3 sec noted 3. No significant tachy/zhou arrythmias notes 4. No cardiac symptoms noted during the recorded interval Signed by : Gene Montes
--- NOTE | 2017-04-08 17:24 | HHI.FF ---
Face to Face Verification Diagnosis: (1) Acute ischemic multifocal posterior circulation stroke (2) Intractable headache (3) Thrombus in heart chamber Physical Therapy Order: Evaluate and Treat, Improve ambulation, Strength and gait training Home Health Nursing Order: Medical education Signs/symptoms of disease process Medication education-adverse effect Nursing assessment with vital signs Instructions: assist with coumadin mgmt obtain daily INR assist with daily lovenox injection stop lovenox and daily INR once INR is above 2, then obtain INR every Wednesday and send results to pt's PCP, Dr. Noel Leblanc I have seen patient Ara Schaffer on 04/08/17. My clinical findings support the need for the requested home health care services because: Ltd mobility - disease progression Deconditioned w/ increased weakness Med compliance is questionable Need for psychosocial assistance I certify that my clinical findings support that this patient is homebound because: Need for psychosocial assistance Unable to use public transportation Diomedes Stallings DO Apr 08, 2017 17:24
[2017-04-08] MEDS ORDERED: ACETAMINOPHEN/HYDROcodone 325 MG/5 MG TAB PO PRN (19:15)
[2017-04-08] MEDS ORDERED: ACETAMINOPHEN 325 MG TAB PO PRN (19:15)
[2017-04-08] MEDS: PRAVASTATIN SOD 40 MG TAB PO SCH (20:17)
[2017-04-09] VITALS: BP 116/57; PULSE 74; RESP 18; TEMP 97.7; O2SAT 97
[2017-04-09 03:39] VITALS: PULSE 87
[2017-04-09 04:00] VITALS: BP 124/61; PULSE 74; RESP 18; TEMP 97.9; O2SAT 96
[2017-04-09] MEDS ORDERED: ACETAMINOPHEN 325 MG TAB PO PRN (07:00)
[2017-04-09] MEDS ORDERED: ACETAMINOPHEN/HYDROcodone 325 MG/5 MG TAB PO PRN (07:00)
[2017-04-09 08:00] VITALS: BP 134/77; PULSE 82; RESP 20; TEMP 98.6; O2SAT 96
--- NOTE | 2017-04-09 08:22 | HHI.PR ---
Review/Management Diagnosis/Plan: (1) Acute ischemic multifocal posterior circulation stroke Plan: posterior circulation strokes etiology: embolic from heart. RAMBO +left atrial appendage clot +HLD mri/mra images reviewed. mra cow nml carotids nml recs neuro stable. will obtain f/u ct brain on anticoagulation prior to d/c doing well coumadin and bridge with lovenox 60mg qd rehab vs home with p.t. planning (2) Hypertensive encephalopathy Plan: 2/2 stroke probable underlying untreated htn improved (3) Migraine (4) TIA (transient ischemic attack) (5) Neck pain (6) Degenerative cervical spinal stenosis Subjective Subjective Comments No acute events reported slept well mild headache; ready for breakfast No chest pain No dyspnea Active Medications Current Medications Medications (Trade) Dose Ordered Sig/Briana Route Start Time Stop Time Status Last Admin (NS Flush) 2 ml UNSCH PRN IV FLUSH 04/05/17 21:00 (NS Flush) 2 ml BID IV FLUSH 04/05/17 21:00 04/08/17 20:16 (Zofran Inj) 4 mg Q6H PRN IVP 04/05/17 21:00 (Narcan Inj) 0.4 mg UNSCH PRN IV 04/05/17 21:00 (Dominique-Colace) 1 tab BID PO 04/05/17 21:00 04/06/17 20:26 (Milk Of Magnesia Liq) 30 ml Q12H PRN PO 04/05/17 21:00 (Senokot) 17.2 mg Q12H PRN PO 04/05/17 21:00 (Dulcolax Supp) 10 mg DAILY PRN RECTAL 04/05/17 21:00 (Lactulose Liq) 30 ml DAILY PRN PO 04/05/17 21:00 (Dilaudid Pf Inj) 0.5 mg Q4H PRN IV PUSH 04/05/17 22:00 04/06/17 22:27 (Vasotec Inj) 1.25 mg Q4H PRN IV 04/06/17 17:00 (Trandate Inj) 10 mg Q2H PRN IV 04/06/17 17:00 (Pravachol) 40 mg HS PO 04/06/17 21:00 04/08/17 20:17 (Xanax) 0.25 mg Q8H PRN PO 04/07/17 07:45 04/08/17 20:17 Miscellaneous Information 1 UNSCH PRN XX 04/07/17 15:00 04/10/17 14:59 (Coumadin) 5 mg DAILY@16 PO 04/08/17 16:00 04/08/17 16:48 (Lovenox Inj) 60 mg Q24H SQ 04/08/17 11:00 04/08/17 11:10 (Tylenol) 650 mg Q4H PRN PO 04/09/17 07:00 ([place] 5-325 Mg) 1 tab Q4H PRN PO 04/09/17 07:00 Allergies Allergies Coded Allergies No Known Allergies ([id number]/29/06) Review of Systems All other ROS: ROS reviewed as documented in chart Exam I&O / VS 04/08/17 04/08/17 04/09/17 14:59 22:59 06:59 Intake Total 720 ml 480 ml 0 ml Output Total 800 ml Balance -80 ml 480 ml 0 ml Intake Oral 720 ml 480 ml 0 ml Output Urine Total 800 ml # Voids 4 1 # Bowel Movements 1 4 Vital Signs Date Time Temp Pulse Resp B/P Pulse Ox O2 Delivery O2 Flow Rate FiO2 04/09/17 04:00 97.9 74 18 124/61 96 04/09/17 03:39 87 04/09/17 00:00 97.7 74 18 116/57 97 04/08/17 20:21 Room Air 04/08/17 20:00 98.5 94 18 125/68 94 04/08/17 16:00 98.8 93 20 119/72 97 04/08/17 12:00 98.3 87 20 108/65 98 04/08/17 08:30 94 Room Air General: Alert and Oriented, No acute distress Eye: EOMI Respiratory: Non-labored respirations Neurologic: Alert, Oriented, Normal sensory, CN II-XII intact, Gag reflex normal, Normal DTR's Psychiatric: Cooperative, Appropriate mood & affect, Normal judgement, Non- suicidal Exam Comments looks well, alert, ox 3, eomi, vff, ou 3-2mm, face sym,, younger to gravity, no drift, no dystaxia, msr sym 1-2+ Objective Micro and Labs Laboratory Tests Test 04/08/17 12:29 Prothrombin Time 11.4 Prothromb Time International 1.0 Ratio Date/Time Procedure Status Source Growth 04/05/17 18:05 Aerobic Blood Culture - Preliminary Resulted Blood Peripheral NO GROWTH IN 3 DAYS 04/05/17 18:05 Anaerobic Blood Culture - Preliminary Resulted Blood Peripheral NO GROWTH IN 3 DAYS Problem Qualifiers (1) Acute ischemic multifocal posterior circulation stroke: Qualified Code: I63.539 - Acute ischemic multifocal posterior circulation stroke, unspecified laterality (2) Migraine: (3) TIA (transient ischemic attack): Qualified Code: G45.9 - Transient cerebral ischemia, unspecified type Johnathan Garcia MD Apr 09, 2017 08:22
[2017-04-09] MEDS: DOCUSATE SODIUM 50 MG/SENNA 8.6 MG TAB PO SCH (08:42)
[2017-04-09] MEDS: ENOXAPARIN SODIUM 60 MG/0.6 ML SYRINGE SQ SCH (08:43)
[2017-04-09] MEDS: ALPRAZolam 0.25 MG TAB PO PRN (08:43)
[2017-04-09] MEDS: SODIUM CHLORIDE 0.9% FLUSH 10 ML FLUSH IV FLUSH SCH (08:43)
[2017-04-09 09:00] VITALS: PULSE 81
--- NOTE | 2017-04-09 10:58 | RADRPT ---
EXAM DATE/TIME: 04/09/2017 10:29 [place] COMPARISON: MRI BRAIN W/O CONTRAST, April 06, 2017, 11:37. MRA BRAIN W/O CONTRAST, April 06, 2017, 11:37. CT CERVICAL SPINE W/O CONTRAST, April 05, 2017, 18:09. INDICATIONS : Follow up stroke. RADIATION DOSE: 56.35 CTDIvol (mGy) MEDICAL HISTORY : Hypertension. SURGICAL HISTORY : None. ENCOUNTER: Initial ACUITY: 1 day PAIN SCALE: 0/10 LOCATION: cranial TECHNIQUE: Multiple contiguous axial images were obtained of the head. Using automated exposure control and adj ustment of the mA and/or kV according to patient size, radiation dose was kept as low as reasonably a chievable to obtain optimal diagnostic quality images. DICOM format image data is available electro nically for review and comparison. FINDINGS: The examination demonstrates subtle, scattered areas of encephalomalacia in both cerebellar hemispher es. There is subtle encephalomalacia seen in the medial occipital cortex on the right. These areas wo uld correspond to the abnormal signal seen on the previous MRI dated 04/06/17. No acute cranial hemorr farideh is seen. The ventricles are normal in size and configuration. No mass lesion is identified. The sulci and gyri appear otherwise intact. The osseous structures of the skull are intact. CONCLUSION: 1. Scattered, small areas of encephalomalacia in both cerebellar hemispheres and in the medial occipi desi cortex on the right corresponding to the patient's known areas of infarct by MR. No hemorrhage id entified. Meliton Almazan MD on April 09, 2017 at 10:53 Board Certified Radiologist. This report was verified electronically.
[2017-04-09 12:00] VITALS: BP 108/66; PULSE 83; RESP 18; TEMP 98.5; O2SAT 95
[2017-04-09] MEDS ORDERED: ENOX60P SQ (13:52)
[2017-04-09] MEDS ORDERED: PRAV40TA PO (13:52)
[2017-04-09] MEDS ORDERED: COUM5TAB PO (13:52)
--- NOTE | 2017-04-09 13:56 | HHI.DCPOC ---
Discharge Care Plan Diagnosis: (1) Acute ischemic multifocal posterior circulation stroke (2) CVA (cerebral vascular accident) Goals to Promote Your Health * To prevent worsening of your condition and complications * To maintain your health at the optimal level Directions to Meet Your Goals Take your medications as prescribed Follow your dietary instruction Follow activity as directed Keep your appointments as scheduled Take your immunizations and boosters as scheduled If your symptoms worsen call your PCP, if no PCP go to Urgent Care Center or Emergency Room Smoking is Dangerous to Your Health. Avoid second hand smoke Call the 24-hour hour crisis hotline for domestic abuse at Vee Acevedo Apr 09, 2017 13:55 Diomedes Stallings DO Apr 12, 2017 00:51
[2017-04-09] MEDS: WARFARIN SOD 5 MG TAB PO SCH (15:58)
--- NOTE | 2017-04-09 16:01 | HHI.DS ---
Discharge Summary Admission Date Apr 05, 2017 at 19:44 Discharge Date: Apr 09, 2017 Admitting Diagnosis Intractable headache with AMS and neurological symptoms (1) CVA (cerebral vascular accident) Diagnosis: Principal (2) Intractable headache Diagnosis: Secondary (3) Neck pain Diagnosis: Secondary (4) Altered mental status Diagnosis: Secondary (5) Degenerative cervical spinal stenosis Diagnosis: Secondary Consultants Dr. Johnathan Garcia - Neurology Dr. Shashank Breaux - Cardiology Brief History 62-year-old female came to the emergency room brought by her with history of headache, neck pain, left sided upper extremity tingling and numbness and left lower extremity pain. Patient started having headache and earache 10 days ago and went to the urgent care. She was started on doxycycline and Medrol Dosepak. She has history of lupus. Patient says that she continues taking the medication but symptoms did not improve. She went back to urgent care about 3 days ago at this time was started on ciprofloxacin as well as prednisone. She is was getting visual hallucinations last week and the numbness started 2 days ago. She says she has been unable to feel the temperature especially the cold temperature with her left hand. She also feels numb over her left side of the lower back and left leg. There is radiating pain down her leg. Her headache continues. She has been getting fever and chills but she did not measure temperature. She has neck pain mostly on the right side of her neck. Given all these various symptoms she decided come to the emergency room. No history of sick contacts. Vital signs in triage were within acceptable limits. Patient has a malar rash which she says she has had it since she was 11 years old and comes and goes. It's related to her lupus. Currently it is very prominent. Concern is for possible menigitis and lupus cerebritis for spinal tap and will get neurologic evaluation. CBC/BMP: 04/06/17 0757 04/06/17 0757 Significant Findings Laboratory Tests Test 04/06/17 04/07/17 16:18 09:35 C-Reactive Protein 0.50 MG/DL (0.00-0.30) Triglycerides Level 188 MG/DL (42-150) HDL Cholesterol 38.9 MG/DL (40.0-60.0) Imaging Last Impressions Head CT 04/09/17 0000 Signed Impressions: Service Date/Time: Valerio, April 09, 2017 10:29 - CONCLUSION: 1. Scattered, small areas of encephalomalacia in both cerebellar hemispheres and in the medial occipital cortex on the right corresponding to the patient's known areas of infarct by MR. No hemorrhage identified. Meliton Almazan MD Head Magnetic Resonance Angiography 04/06/17 0000 Signed Impressions: Service Date/Time: Thursday, April 06, 2017 11:37 - CONCLUSION: Normal examination. Sanjay Cristobal Jr., MD Cervical Spine MRI 04/06/17 0000 Signed Impressions: Service Date/Time: Thursday, April 06, 2017 11:37 - CONCLUSION: 1. Mild spinal stenosis and moderate ot severe left neural foraminal narrowing at C5-6. 2. Mild to moderate bilateral neural foraminal narrowing at C3-4, C4-5 and C6-7. 3. Cervical spondylosis from C3 through C7. George Traylor MD Carotid Artery Ultrasound 04/06/17 0000 Signed Impressions: Service Date/Time: Thursday, April 06, 2017 10:42 - CONCLUSION: Normal examination. Frederic Irving MD Brain MRI 04/06/17 0000 Signed Impressions: Service Date/Time: Thursday, April 06, 2017 11:37 - CONCLUSION: 1. Patchy areas of abnormal diffusion signal in both cerebellar hemispheres, the cerebellar vermis, the right occipital cortex in the medial aspect of the right temporal cortex. Findings are concerning for subacute cortical infarct. Please see above discussion. Meliton Almazan MD Chest X-Ray 04/05/17 1287 Signed Impressions: Service Date/Time: Wednesday, April 05, 2017 17:56 - CONCLUSION: No evidence of acute cardiopulmonary disease. Frederic Burgos MD Cervical Spine CT 04/05/17 0000 Signed Impressions: Service Date/Time: Wednesday, April 05, 2017 18:09 - CONCLUSION: 1. Multilevel cervical spine degenerative changes as detailed above. 2. Moderate spinal stenosis and high-grade left foraminal stenosis at C5/C6. 3. Generally mild spinal stenosis and mild to moderate degrees of foraminal encroachment elsewhere. 4. No fracture or subluxation demonstrated. Frederic Burgos MD PE at Discharge General: NAD, AAOx3 Chest: CTA Cardiac: Regular Abd: +BS, soft ND/NT Ext: No edema Hospital Course CVA (cerebral vascular accident) - Pt admitted with c/o COLLAZO, LUE tingling & numbness, LLE pain - CT brain (04/05/17) --> NO acute findings - MRI brain (04/06/17) --> Patchy areas of abnormal diffusion signal in both cerebellar hemispheres, the cerebellar vermis, the right occipital cortex in the medial aspect of the right temporal cortex. Findings are concerning for subacute cortical infarct. - Carotid US (04/06/17) --> no hemodynamically significant stenosis - MRI cervical spine (04/06/17) --> Multilevel cervical spine degenerative changes as detailed above. Moderate spinal stenosis and high-grade left foraminal stenosis at C5/C6. Generally mild spinal stenosis and mild to moderate degrees of foraminal encroachment elsewhere. No fracture or subluxation demonstrated. - Pt had RAMBO on 04/08 which noted an LA thrombus - Holter monitor --> Predominant underlying rhythm is sinus, no pauses >3 sec, no significant tachy/zhou arrhythmias, no cardiac symptoms noted during the recorded interval. - Pt will likely need an event monitor - Hypercoag panel is pending - FLP --> Total cholesterol 170, LDL 94, HDL 38.9, Triglycerides 188 - BP is stable, pt not on any antihypertensives - Pt started on Coumadin with Lovenox bridge and this will be continued as an outpt. We will arrange for [facility] to help with daily INR checks, assist with daily Lovenox injection. She was recommended to stop Lovenox and daily INR once INR is above 2, then obtain INR every Wednesday and - Anxiety was an issue for the patient during this hospitalization and it was discussed with the patient starting on an SSRI but she was hesitant to start this during this admission and has requested a Xanax prescription. This was provided to the pt and she will need to further explore this with her PCP upon followup. - Pt will need to followup with her PCP, Dr. Noel Leblanc, in 1 week - She will need to followup with Dr. Erickson in 2 weeks Pt Condition on Discharge: Stable Discharge Disposition: Disch w/ Home Health Serv Discharge Instructions DIET: Follow Instructions for: Heart Healthy Diet Activities you can perform: Regular-No Restrictions Follow up Referrals: Neurology - 2 Weeks with Johnathan Garcia MD PCP Follow-up - [address] Noel Leblanc New Medications: Alprazolam (Xanax) 0.25 Mg Tab 0.25 MG PO Q8H PRN for ANXIETY, #20 TAB 0 Refills Enoxaparin Inj (Lovenox Inj) 60 Mg/0.6 Ml Syr 60 MG SQ Q24H for Stroke Prevention, #5 INJECTION Pravastatin (Pravachol) 40 Mg Tab 40 MG PO HS for Stroke Prevention, #31 TAB Warfarin (Coumadin) 5 Mg Tab 5 MG PO DAILY@16 for Stroke Prevention, #31 TAB Continued Medications: Tramadol (Ultram) 50 Mg Tab 50 MG PO Q6H PRN for PAIN, TAB 0 Refills Discontinued Medications: Ciprofloxacin Liq (Cipro Liq) 500 Mg/5 Ml Susp 500 MG PO BID for Infection, #100 ML 0 Refills Prednisone (Prednisone) 50 Mg Tab 50 MG PO DAILY, TAB 0 Refills Additional Information Patient examined. Assessment and plan formulated with Vee Acevedo PA-C. I agree with the above. Vee Acevedo Apr 09, 2017 16:01 Diomedes Stallings DO Apr 12, 2017 00:50
[2017-04-09] MEDS ORDERED: ALPR.5 PO (17:44)
[2017-04-09] MEDS ORDERED: ALPR.25 PO (17:45)
[2017-04-23 09:18] LABS: COAG FACTOR VIII 77 % normal (50-180)
[2017-04-23 09:19] LABS: VWF AG 171 % (50-217)
== END 2017-04-09 18:04 | disposition home health service (06) | DRG 66 ==
LOC: NEPC 16:42 → NEDA 19:44 → N04A 21:37
PROVIDERS: ADMIT Hospitalist; ATTEND Hospitalist
PROC: B246ZZ4 Ultrasonography of Right and Left Heart, Transesophageal (ICD-10-PCS; principal; 2017-04-07)
DX: I63.9 Cerebral infarction, unspecified (principal); I51.3 Intracardiac thrombosis, not elsewhere classified; I10 Essential (primary) hypertension; M48.02 Spinal stenosis, cervical region; M47.22 Other spondylosis with radiculopathy, cervical region; R21 Rash and other nonspecific skin eruption; R47.81 Slurred speech; R20.9 Unspecified disturbances of skin sensation; G43.909 Migraine, unspecified, not intractable, without status migrainosus; E78.5 Hyperlipidemia, unspecified; F41.9 Anxiety disorder, unspecified
CPT/HCPCS: 70450; 70544; 70551; 71010; 72125; 72141; 80053; 80061; 81001; 82140; 82607; 83036; 83605; 84443; 85025; 85240; 85245; 85246; 85247; 85250; 85379; 85384; 85610; 85652; 85670; 85730; 86038; 86140; 87040; 93225; 93226; 93312; 93320; 93325; 93880; 95819; 96365; J0696; J1170; J1644; J1650

== ENCOUNTER 2017-05-10 08:58 | Emergency (ER) | payer OTHER ==
[~2017-05-10] VITALS: Ht 160 cm; Wt 67.0 kg
[~2017-05-10 08:58] MED LIST changes: +ALPR.25 PO; +COUM5TAB PO; +ENOX60P SQ; -LORA10TA7; +PRAV40TA PO; +ULTR50TA5 PO
[2017-05-10 09:02] VITALS: BP 129/69; PULSE 76; RESP 12; TEMP 98.1; O2SAT 98
[2017-05-10 09:18] VITALS: BP 143/78; PULSE 80; RESP 20; O2SAT 95
[2017-05-10] MEDS ORDERED: WARF-20 PO (09:20)
[2017-05-10] MEDS ORDERED: DEPA500T PO (09:21)
[2017-05-10] MEDS ORDERED: SODIUM CHLOR 0.9% 1000 ML INJ 1,000 ML IV ONE (09:47)
[2017-05-10 09:59] VITALS: BP 143/78; PULSE 70; RESP 20; O2SAT 95
[2017-05-10] MEDS ORDERED: SODIUM CHLORIDE 0.9% FLUSH 10 ML FLUSH IVF PRN (10:00)
[2017-05-10 10:14] LABS: BASOPHIL % 0.4 % (0.0-2.0); HEMATOCRIT 41.5 % (35.0-46.0); HEMO FLAGS DIFF FINAL; LYMPH % 9.2 % (9.0-44.0); LYMPHOCYTE # 1.1 TH/MM3 (1.0-4.8); MEAN CORPUSCULAR HEMOGLOBIN 33.5 PG (27.0-34.0); MEAN CORPUSCULAR HGB CONC 33.8 % (32.0-36.0); MONO % 8.8 % (0.0-8.0); NEUT % 81.6 % (16.0-70.0); PLATELET COUNT 217 TH/MM3 (150-450); RED BLOOD COUNT 4.19 MIL/MM3 (4.00-5.30); RED CELL DISTRIBUTION WIDTH 13.5 % (11.6-17.2); WHITE BLOOD COUNT 12.2 TH/MM3 (4.0-11.0)
--- NOTE | 2017-05-10 10:17 | PD ---
HPI Chief Complaint: Complaint Time Seen by Provider: 09:27 (Nelsy Browne MD) Travel History International Travel<30 days: No Contact w/Intl Traveler<30days: No Traveled to known affect area: No (Aleena Ward MD R1) History of Present Illness HPI 62 yr old F presenting to the ED with 2-3 day history of R flank pain. Complains of pain and burning with urination, denies fever and hematuria. Endorses nausea. Also complains of left sided-headache. Pt has hx of migraines and hx of stroke one month ago. States that her headache feels like her normal migraines. She has left-sided numbness at baseline due to her stroke. Denies vision changes, trouble swallowing, weakness, SOB, and CP. (Aleena Ward MD R1) History Social History Alcohol Use: Yes (rarely) Tobacco Use: No (Aleena Ward MD R1) Allergies-Medications (Allergen,Severity, Reaction): Coded Allergies: No Known Allergies (Verified , 05/10/17) Reported Meds & Prescriptions Reported Meds & Active Scripts Active Xanax (Alprazolam) 0.25 Mg Tab 0.25 Mg PO Q8H PRN Pravachol (Pravastatin) 40 Mg Tab 40 Mg PO HS Reported Depakote DR (Divalproex Sodium) 500 Mg Tabdr 500 Mg PO DAILY Warfarin 4 Mg Tab 4 Mg PO DAILY Ultram (Tramadol HCl) 50 Mg Tab 50 Mg PO Q6H PRN (Nelsy Browne MD) Review of Systems Except as stated in HPI: all other systems reviewed are Neg (Aleena Ward MD R1) Physical Exam Narrative GENERAL: Well-nourished, well-developed patient, in NAD SKIN: Warm and dry. HEAD: Normocephalic. EYES: PERRLA, No scleral icterus. No injection or drainage. NECK: Supple, trachea midline. No JVD or lymphadenopathy. CARDIOVASCULAR: Regular rate and rhythm without murmurs, gallops, or rubs. RESPIRATORY: Breath sounds equal bilaterally. No accessory muscle use. GASTROINTESTINAL: Abdomen soft, non-tender, nondistended. R CVA tenderness. EXTREMITIES: No cyanosis, or edema. NEUROLOGICAL: Awake, alert, and oriented x 3. Non-focal. Strength 5/5 in all extremities. (Aleena Ward MD R1) Data Data Last Documented VS Vital Signs Date Time Temp Pulse Resp B/P (MAP) Pulse Ox O2 Delivery O2 Flow Rate FiO2 05/10/17 10:10 96 Nasal Cannula 2.00 05/10/17 09:59 70 20 143/78 (99) 05/10/17 09:02 98.1 (Nelsy Browne MD) Orders Orders Complete Blood Count With Diff (05/10/17 09:47) Comprehensive Metabolic Panel (05/10/17 09:47) Urinalysis - C+S If Indicated (05/10/17 09:47) Ecg Monitoring (05/10/17 09:47) Iv Access Insert/Monitor (05/10/17 09:47) Sodium Chloride 0.9% Flush (Ns Flush) (05/10/17 10:00) Sodium Chlor 0.9% 1000 Ml Inj (Ns 1000 M (05/10/17 09:47) Nybn-Dzsrj-Gkss 325-50-40 Mg (Fioricet 3 (05/10/17 11:00) Urine Culture (05/10/17 09:50) Ceftriaxone Inj (Rocephin Inj) (05/10/17 11:30) (Nelsy Browne MD) Labs Laboratory Tests Test 05/10/17 09:45 05/10/17 09:50 White Blood Count 12.2 TH/MM3 Red Blood Count 4.19 MIL/MM3 Hemoglobin 14.0 GM/DL Hematocrit 41.5 % Mean Corpuscular Volume 99.0 FL Mean Corpuscular Hemoglobin 33.5 PG Mean Corpuscular Hemoglobin Concent 33.8 % Red Cell Distribution Width 13.5 % Platelet Count 217 TH/MM3 Mean Platelet Volume 8.0 FL Neutrophils (%) (Auto) 81.6 % Lymphocytes (%) (Auto) 9.2 % Monocytes (%) (Auto) 8.8 % Eosinophils (%) (Auto) 0.0 % Basophils (%) (Auto) 0.4 % Neutrophils # (Auto) 10.0 TH/MM3 Lymphocytes # (Auto) 1.1 TH/MM3 Monocytes # (Auto) 1.1 TH/MM3 Eosinophils # (Auto) 0.0 TH/MM3 Basophils # (Auto) 0.0 TH/MM3 CBC Comment DIFF FINAL Differential Comment Blood Urea Nitrogen 9 MG/DL Creatinine 1.36 MG/DL Random Glucose 110 MG/DL Total Protein 8.1 GM/DL Albumin 3.7 GM/DL Calcium Level 9.1 MG/DL Alkaline Phosphatase 107 U/L Aspartate Amino Transf (AST/SGOT) 32 U/L Alanine Aminotransferase (ALT/SGPT) 49 U/L Total Bilirubin 0.5 MG/DL Sodium Level 136 MEQ/L Potassium Level 4.4 MEQ/L Chloride Level 102 MEQ/L Carbon Dioxide Level 26.0 MEQ/L Anion Gap 8 MEQ/L Estimat Glomerular Filtration Rate 40 ML/MIN Urine Color YELLOW Urine Turbidity CLEAR Urine pH 7.5 Urine Specific [place] 1.009 Urine Protein TRACE mg/dL Urine Glucose (UA) NEG mg/dL Urine Ketones NEG mg/dL Urine Occult Blood MOD Urine Nitrite NEG Urine Bilirubin NEG Urine Urobilinogen LESS THAN 2.0 MG/DL Urine Leukocyte Esterase LARGE Urine RBC 15 /hpf Urine WBC 115 /hpf Urine Squamous Epithelial Cells <1 /hpf Urine Bacteria OCC /hpf Urine Mucus FEW /lpf Microscopic Urinalysis Comment CULTURE INDICATED (Nelsy Browne MD) [facility] Medical Decision Making Medical Screen Exam Complete: Yes Emergency Medical Condition: Yes Differential Diagnosis urinary tract infection, pyelonephritis, appendicitis, cholecystitis Narrative Course See attending note (Nelsy Browne MD) Diagnosis Primary Impression: Pyelonephritis Additional Instructions: If you develop fever, persistent vomiting, back pain, or inability to eat return to the emergency department as your urine infection may have progressed to a kidney infection. Complete your antibiotics as prescribed. Stay well hydrated with Gatorade or water. Followup with your primary care physician in 2-3 days if your symptoms have not resolved. Med/Other Pt SpecificInfo: Prescription(s) given (Nelsy Browne MD) Scripts Cephalexin (Keflex) 500 Mg Cap 500 MG PO Q12H for Infection for 7 Days, #14 CAP 0 Refills Prov: Nelsy Browne MD 05/10/17 Disposition: 01 DISCHARGE HOME Condition: Stable Aleena Ward MD R1 May 10, 2017 10:17 Nelsy Browne MD May 10, 2017 11:32
[2017-05-10 10:34] LABS: BACTERIA, URINE OCC /hpf; BLOOD, URINE MOD (NEG); COMMENT (UR) CULTURE INDICATED; CULTURE IF INDICATED CULTURE INDICATED; GLUCOSE,URINE NEG (NEG); KETONE, URINE NEG (NEG); MUCUS URINE FEW /lpf (OCC); NITRITE,URINE NEG (NEG); PH, URINE 7.5 (5.0-8.5); SQUAMOUS EPITHELIAL CELL URINE <1 /hpf (0-5); URINE COLOR YELLOW (YELLW/STRAW)
[2017-05-10 10:42] LABS: ALKALINE PHOSPHATASE 107 U/L (45-117); TOTAL BILIRUBIN ADULT 0.5 MG/DL (0.2-1.0)
[2017-05-10 10:47] LABS: ALT (GPT) 49 U/L (10-53); ANION GAP 8 MEQ/L (5-15); AST (GOT) 32 U/L (15-37); BLOOD UREA NITROGEN 9 MG/DL (7-18); CHLORIDE 102 MEQ/L (98-107); GLOMERULAR FILTRATION RATE 40 ML/MIN (>89); POTASSIUM 4.4 MEQ/L (3.5-5.1); SODIUM (NA) 136 MEQ/L (136-145)
[2017-05-10] MEDS ORDERED: ACETAMIN 325 MG/BUTALBITAL 50 MG/CAFFEINE 40 MG TAB PO ONE (11:00)
[2017-05-10] MEDS ORDERED: cefTRIAXone INJ 1,000 MG in SODIUM CHLORIDE 0.9% INJ 100 ML IV ONE (11:30)
[2017-05-10] MEDS ORDERED: CEPH-460 PO (11:31)
[2017-05-10 12:06] VITALS: BP 127/64
--- NOTE | 2017-05-10 12:08 | PD ---
Data Data Last Documented VS Vital Signs Date Time Temp Pulse Resp B/P (MAP) Pulse Ox O2 Delivery O2 Flow Rate FiO2 05/10/17 10:10 96 Nasal Cannula 2.00 05/10/17 09:59 70 20 143/78 (99) 05/10/17 09:02 98.1 Orders Orders Complete Blood Count With Diff (05/10/17 09:47) Comprehensive Metabolic Panel (05/10/17 09:47) Urinalysis - C+S If Indicated (05/10/17 09:47) Ecg Monitoring (05/10/17 09:47) Iv Access Insert/Monitor (05/10/17 09:47) Sodium Chloride 0.9% Flush (Ns Flush) (05/10/17 10:00) Sodium Chlor 0.9% 1000 Ml Inj (Ns 1000 M (05/10/17 09:47) Shpt-Odtrt-Mqgi 325-50-40 Mg (Fioricet 3 (05/10/17 11:00) Urine Culture (05/10/17 09:50) Ceftriaxone Inj (Rocephin Inj) (05/10/17 11:30) Labs Laboratory Tests Test 05/10/17 09:45 05/10/17 09:50 White Blood Count 12.2 TH/MM3 Red Blood Count 4.19 MIL/MM3 Hemoglobin 14.0 GM/DL Hematocrit 41.5 % Mean Corpuscular Volume 99.0 FL Mean Corpuscular Hemoglobin 33.5 PG Mean Corpuscular Hemoglobin Concent 33.8 % Red Cell Distribution Width 13.5 % Platelet Count 217 TH/MM3 Mean Platelet Volume 8.0 FL Neutrophils (%) (Auto) 81.6 % Lymphocytes (%) (Auto) 9.2 % Monocytes (%) (Auto) 8.8 % Eosinophils (%) (Auto) 0.0 % Basophils (%) (Auto) 0.4 % Neutrophils # (Auto) 10.0 TH/MM3 Lymphocytes # (Auto) 1.1 TH/MM3 Monocytes # (Auto) 1.1 TH/MM3 Eosinophils # (Auto) 0.0 TH/MM3 Basophils # (Auto) 0.0 TH/MM3 CBC Comment DIFF FINAL Differential Comment Blood Urea Nitrogen 9 MG/DL Creatinine 1.36 MG/DL Random Glucose 110 MG/DL Total Protein 8.1 GM/DL Albumin 3.7 GM/DL Calcium Level 9.1 MG/DL Alkaline Phosphatase 107 U/L Aspartate Amino Transf (AST/SGOT) 32 U/L Alanine Aminotransferase (ALT/SGPT) 49 U/L Total Bilirubin 0.5 MG/DL Sodium Level 136 MEQ/L Potassium Level 4.4 MEQ/L Chloride Level 102 MEQ/L Carbon Dioxide Level 26.0 MEQ/L Anion Gap 8 MEQ/L Estimat Glomerular Filtration Rate 40 ML/MIN Urine Color YELLOW Urine Turbidity CLEAR Urine pH 7.5 Urine Specific [place] 1.009 Urine Protein TRACE mg/dL Urine Glucose (UA) NEG mg/dL Urine Ketones NEG mg/dL Urine Occult Blood MOD Urine Nitrite NEG Urine Bilirubin NEG Urine Urobilinogen LESS THAN 2.0 MG/DL Urine Leukocyte Esterase LARGE Urine RBC 15 /hpf Urine WBC 115 /hpf Urine Squamous Epithelial Cells <1 /hpf Urine Bacteria OCC /hpf Urine Mucus FEW /lpf Microscopic Urinalysis Comment CULTURE INDICATED MDM Supervised Visit with EVELINE: No Narrative Course The history, exam, and medical decision-making in the associated Resident provider note were completed with my assistance. I reviewed and agree with the findings presented. I attest that I had a [id number] encounter with the patient on the same day, and personally performed and documented my assessment and findings in the medical record. *My assessment and Findings: This is a 62-year-old female who presents to the emergency department having increasing pain with urination and bilateral flank pain with some pain in her lower abdomen. She has no fevers or chills. Her vital signs are reassuring. Physical exam demonstrates a well-appearing female. She has bilateral CVA tenderness and mild tenderness in the suprapubic region with no rebound or guarding. She has a mild leukocytosis. Urinalysis confirms urinary tract infection. I suspect she has mild pyelonephritis. She was given a dose of IV antibiotic and will be discharged on Keflex. Nelsy Browne MD May 10, 2017 11:30
== END 2017-05-10 12:19 | disposition home or self-care (01) ==
LOC: NEPE 08:58
DX: N12 Tubulo-interstitial nephritis, not specified as acute or chronic (principal); B96.89 Other specified bacterial agents as the cause of diseases classified elsewhere
CPT/HCPCS: 80053; 81001; 85025; 87086; 96374; 99284; J0696; J7030